=== PATIENT | female | born 1935 | race Caucasian/White ===

== ENCOUNTER 2022-06-03 13:00 | Inpatient (IN) ==
[2022-06-03] MEDS ORDERED: ONDANSETRON INJ 2 MG/ML 2 ML VIAL IV STA (13:07)
[2022-06-03] MEDS ORDERED: fentaNYL citrate 100 MCG/2 ML VIAL IV STA (13:07)
--- NOTE | 2022-06-03 13:12 | Emergency Department Note ---
History of Present Illness General Chief complaint: Hip Pain Stated complaint: FALL, LEG PAIN Time Seen by Provider: 06/03/22 13:02 Source: other (Nurse) Mode of arrival: EMS Limitations: other (Severe dementia) History of Present Illness Provider complaint: Left hip pain Onset (ago): hour(s) Location: hip and left Maximum Pain Intensity: 4 History is very limited as the patient is a resident of the dementia unit at [facility]. I did obtain history from the patient's nurse who spoke to EMS. The patient apparently fell out of bed today prior to arrival and injured her left hip. The fall was unwitnessed but the staff presumed that she fell out of bed. The bed was lowered to the ground. She is confused which is her normal mental status. She does complain of pain to the hip when I palpate it. She otherwise denies any pain anywhere else in her body. She denies headache or neck pain specifically. Home Medications Medication Instructions Recorded Confirmed Type glimepiride 2 mg tablet 4 mg PO DAILY 06/03/22 06/03/22 History linagliptin 5 mg tablet (Tradjenta) 5 mg PO DAILY 06/03/22 06/03/22 History metformin 500 mg tablet 500 mg PO BID 06/03/22 06/03/22 History quetiapine 50 mg tablet 50 mg PO BID 06/03/22 06/03/22 History sertraline 50 mg tablet 50 mg PO DAILY 06/03/22 06/03/22 History Allergies Allergy/AdvReac Type Severity Reaction Status Date / Time atorvastatin Allergy Severe muscle Verified 08/15/15 21:01 weakness Penicillins Allergy Intermediate Hives Verified 08/15/15 20:36 Past Med/Surg History Medical History Dementia Hypertension Social History Feels Safe at Home: Yes Review of Systems See HPI for pertinent positives & negatives. Unobtainable due to cognitive status Physical Exam Vital Signs Vital Signs - 24 hr 06/03/22 13:07 06/03/22 15:40 Temperature 36.7 C Temperature Source Oral Pulse Rate 90 Pulse Rate [Right Radial] 90 Respiratory Rate 18 18 Respiratory Effort / Characteristics Non-Labored Respiratory Depth Normal Blood Pressure 154/75 H Blood Pressure [Left Arm] 131/57 L Blood Pressure Mean 101 Blood Pressure Mean [Left Arm] 81 Blood Pressure Position Sitting Blood Pressure Position [Left Arm] Lying Pulse Oximetry 100 96 Oxygen Delivery Method Room Air Room Air Sepsis Recent Fever Within 48 Hours No Sepsis New/Unexplained Change in Mental Status No Sepsis Action Taken by Nursing No Action Required Constitutional: Vital signs reviewed. Eyes: Pupils are equal round reactive to light. Conjunctiva are noninjected. ENT: The patient will not open her mouth. No midline tenderness to cervical spine. Respiratory: Clear to auscultation bilaterally. Breath sounds are equal bilaterally. Cardiovascular: Regular rate and rhythm. No rubs or gallops. GI: Soft, nondistended and nontender. Bowel sounds are present. Musculoskeletal: Tenderness to the left hip with palpation. No tenderness to the femur, knee, ankle or foot. Normal dorsalis pedis pulse left foot. No tenderness to the right hip. No tenderness to the clavicles, shoulders or upper extremities bilaterally. Right foot in walking boot. Integumentary: No cyanosis. or jaundice. Neurological: The patient is awake and alert. Confused. No focal deficits. Psychiatric: Pleasant. Not agitated. Course Administered Medications Discontinued Medications Fentanyl Citrate (Fentanyl Citrate 100 Mcg/2 Ml Vial) 25 mcg IV NOW STA Stop: 06/03/22 13:08 Last Admin: 06/03/22 13:40 Dose: 25 mcg Documented By: ROSA Ondansetron HCl (Ondansetron Inj 2 Mg/Ml 2 Ml Vial) 4 mg IV NOW STA Stop: 06/03/22 13:08 Last Admin: 06/03/22 13:39 Dose: 4 mg Documented By: ROSA Medical Decision Making Differential Diagnosis Hip fracture, hip dislocation, pelvic fracture, strain, contusion, intracranial hemorrhage, concussion Medical Records Attestation: I reviewed the patient's medical records. I did perform a limited focused review of portions of the patient's old chart on the electronic medical record. The patient has had no recent pertinent visits to this hospital. Home Medications Current Medication List: was personally reviewed by me Laboratory Data Attestation: I reviewed the patient's lab results. Result diagrams: 06/03/22 13:40 06/03/22 13:40 Lab Results 06/03/22 06/03/22 06/03/22 Range/Units 13:40 13:40 13:40 WBC 6.69 (4.8-10.8) K/ul RBC 4.23 (3.93-5.22) M/uL Hgb 12.2 (12.0-16.0) g/dl Hct 36.8 (34.1-44.9) % MCV 87.0 (80.0-100.0) fL MCH 28.8 (25.0-34.0) pg MCHC 33.2 (32.0-36.0) g/dL RDW Std Deviation 41.7 (36.4-46.3) fL RDW Coeff of Manny 13.2 (11.5-14.5) % Plt Count 271 (130-400) K/uL MPV 11.3 (9.4-12.3) fL Immature Gran % (Auto) 0.9 % Neut % (Auto) 67.4 % Lymph % (Auto) 21.2 % [place] % (Auto) 8.1 % Eos % (Auto) 2.1 % Baso % (Auto) 0.3 % Neut # (Auto) 4.51 (1.4-6.5) K/uL Lymph # (Auto) 1.42 (1.2-3.4) K/uL [place] # (Auto) 0.54 (0.24-0.82) K/uL Eos # (Auto) 0.14 (0-0.50) K/uL Baso # (Auto) 0.02 (0-0.2) K/uL Immature Gran # (Auto) 0.06 H (0.00-0.02) K/uL PT 10.9 (9.0-12.0) Seconds INR 1.0 (0.9-1.1) APTT 26.5 (21.0-31.0) Seconds PTT Ratio 1.0 Sodium 138 (136-145) mmol/L Potassium 4.0 (3.5-5.1) mmol/L Chloride 104 (98-107) mmol/L Carbon Dioxide 24 (21-32) mmol/L Anion Gap 10 (3-11) BUN 24 H (6-23) mg/dl Creatinine 1.00 (0.6-1.2) mg/dl Est Cr Clr Drug Dosing Not Reportable Est GFR ( Amer) 59.9 ml/min Est GFR (Non-Af Amer) 51.7 ml/min BUN/Creatinine Ratio 24.0 H (10-20) Glucose 217 H (70-99(Fasting)) mg/dl Calcium 9.1 (8.5-10.1) mg/dl Total Bilirubin 0.5 (0.2-1.0) mg/dl AST 23 (13-39) U/L ALT 18 (7-52) U/L Alkaline Phosphatase 97 (34-104) U/L Total Protein 6.7 (6.0-8.3) gm/dl Albumin 4.0 (3.4-5.0) gm/dl Globulin 2.7 (2.5-4.0) gm/dl Albumin/Globulin Ratio 1.5 (0.9-2) SARS-CoV-2, RNA, NAAT (NEGATIVE) 06/03/22 Range/Units 13:43 WBC (4.8-10.8) K/ul RBC (3.93-5.22) M/uL Hgb (12.0-16.0) g/dl Hct (34.1-44.9) % MCV (80.0-100.0) fL MCH (25.0-34.0) pg MCHC (32.0-36.0) g/dL RDW Std Deviation (36.4-46.3) fL RDW Coeff of Manny (11.5-14.5) % Plt Count (130-400) K/uL MPV (9.4-12.3) fL Immature Gran % (Auto) % Neut % (Auto) % Lymph % (Auto) % [place] % (Auto) % Eos % (Auto) % Baso % (Auto) % Neut # (Auto) (1.4-6.5) K/uL Lymph # (Auto) (1.2-3.4) K/uL [place] # (Auto) (0.24-0.82) K/uL Eos # (Auto) (0-0.50) K/uL Baso # (Auto) (0-0.2) K/uL Immature Gran # (Auto) (0.00-0.02) K/uL PT (9.0-12.0) Seconds INR (0.9-1.1) APTT (21.0-31.0) Seconds PTT Ratio Sodium (136-145) mmol/L Potassium (3.5-5.1) mmol/L Chloride (98-107) mmol/L Carbon Dioxide (21-32) mmol/L Anion Gap (3-11) BUN (6-23) mg/dl Creatinine (0.6-1.2) mg/dl Est Cr Clr Drug Dosing Est GFR ( Amer) ml/min Est GFR (Non-Af Amer) ml/min BUN/Creatinine Ratio (10-20) Glucose (70-99(Fasting)) mg/dl Calcium (8.5-10.1) mg/dl Total Bilirubin (0.2-1.0) mg/dl AST (13-39) U/L ALT (7-52) U/L Alkaline Phosphatase (34-104) U/L Total Protein (6.0-8.3) gm/dl Albumin (3.4-5.0) gm/dl Globulin (2.5-4.0) gm/dl Albumin/Globulin Ratio (0.9-2) SARS-CoV-2, RNA, NAAT NEGATIVE (NEGATIVE) Imaging Data Radiologist's Impression: Cervical Spine CT 06/03/22 13:[address] DOSE: HISTORY: fall eval for fx TECHNIQUE: Multiaxial CT images of the cervical spine were performed and reformatted in the sagittal and coronal plane without the use of contrast. A dose lowering technique was utilized adhering to the principles of ALARA. COMPARISON: None. FINDINGS: No fractures. No subluxation. Prevertebral soft tissues and the C1-C2 interval are intact. No pneumothorax. IMPRESSION: No fractures within the cervical spine. ACT 112: Negative or not required by law. Electronically signed by: Taqueria Hewitt M.D. 06/03/2022 2:[address] 06/03/22 13:[address] DOSE: 1426.88 mGy.cm HISTORY: fall eval fr bleed TECHNIQUE: Multiaxial CT images of the head were performed without the use of intravenous contrast. Automated exposure control was utilized for this study. A dose lowering technique was utilized adhering to the principles of ALARA. Comparison: Brain MRI 08/16/2015. Findings: The paranasal sinuses and mastoid air cells are clear. Partial opacification of the right posterior ethmoid air cells. The remaining paranasal sinuses and mastoid air cells are clear. There is mild motion artifact. Atrophy and microvascular ischemic changes are noted. 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 Ventricular prominence favors central volume loss given the patient's age. Bilateral basal ganglia calcifications are noted. Impression: No acute intracranial abnormality. Atrophy and microvascular ischemic changes. ACT 112: Negative or not required by law. Electronically signed by: Taqueria Hewitt M.D. 06/03/2022 2:15 PM Chest X-Ray 06/03/22 13:08 XR chest 1V portable HISTORY: Hip fracture. Preop. COMPARISON: Chest 08/15/2015. FINDINGS: No pneumothorax. No pleural effusions. There is chronic interstitial thickening, unchanged. No new focal lung consolidations. No evidence for pulmonary edema. The cardiac silhouette is normal in size. There are calcifications within the aortic knob. Prior cholecystectomy. IMPRESSION: Stable chronic interstitial thickening. No acute process within the chest. ACT 112: Negative or not required by law. Electronically signed by: Taqueria Hewitt M.D. 06/03/2022 2:43 PM Hip/Pelvis X-Ray 06/03/22 13:12 XR hip LT 2V w pelvis CLINICAL HISTORY: Fall. Left hip pain. COMPARISON STUDY: None. FINDINGS: There is a comminuted and displaced intertrochanteric fracture of the proximal left femur. No dislocation. The lesser trochanter fragment demonstrates 12 mm of medial displacement. The visualized pelvic bones and right hip are intact. IMPRESSION: Comminuted and displaced intertrochanteric fracture of the proximal left femur. ACT 112: Negative or not required by law. Electronically signed by: Taqueria Hewitt M.D. 06/03/2022 2:42 PM ECG Data Attestation: I personally reviewed and interpreted this ECG as follows: Indication: + other (Fall) Rate (beats per minute): 88 Rhythm: + normal sinus ECG [place]: no Normal ECG ST segments: no ST elevation ECG Findings: + Other (Motion artifact); no PVCs MDM Narrative I did evaluate the patient as noted above. The patient is presenting with left hip pain after a unwitnessed fall. The staff at [facility] states that she fell out of her bed which was low to the ground. She has no complaints at this time but is rather confused due to her dementia. On exam she does have tenderness to the left hip. IV access was established. I did treat the patient with fentanyl and Zofran IV. I did order and personally review the patient's 12-lead EKG as described above. She has no evidence of acute ischemia. I did order and personally reviewed the images of the patient's chest x-ray and pelvis and hip x-rays as described above. She has an intertrochanteric hip fracture. There is no acute process within the chest. I did order and review the patient's blood work as noted in the electronic medical record. CBC is unremarkable without leukocytosis or anemia. Coagulation studies are within normal limits. CMP is unremarkable other than hyperglycemia with a glucose of 217. Screening for COVID-19 is negative. I did order a CT of the head and cervical spine. I did review the images myself as well as the radiology report as described above. There is no evidence of acute process within the brain and no cervical fracture. I did discuss the test results with the patient's daughter who is now in the emergency department. She states that she sees an orthopedic doctor at [facility] for her ankle. She otherwise has no relationship with another orthopedic physician. I did call the on-call orthopedic physician, Dr. Carvalho. I did discuss the case with the hospitalist and case loader operator. Impression & Plan Fx intertrochanteric hip, Fall, Acute hyperglycemia Discharge Plan Visit Data Chief Complaint: Hip Pain Stated Complaint: FALL, LEG PAIN ED Provider: Randy Reed Discharge Problem: Fx intertrochanteric hip, Fall, Acute hyperglycemia Patient Disposition: Being Evaluated by Hospitalist Discharge Instructions Interventions: ED Discharge Assessment Last Done: 06/03/22 16:11 Forms Stand Alone Forms: My [facility] Prescriptions Prescriptions: No Action metformin 500 mg tablet 500 mg PO BID glimepiride 2 mg tablet 4 mg PO DAILY sertraline 50 mg tablet 50 mg PO DAILY quetiapine 50 mg tablet 50 mg PO BID Tradjenta 5 mg tablet 5 mg PO DAILY Referrals Referrals: PCP,NO [Primary Care Provider] - : Fx intertrochanteric hip Qualifiers: Encounter type: initial encounter Fracture type: closed Fracture alignment: displaced Laterality: left Qualified Code(s): S72.142A - Displaced intertrochanteric fracture of left femur, initial encounter for closed fracture Fall Qualifiers: Encounter type: initial encounter Qualified Code(s): W19.XXXA - Unspecified fall, initial encounter
[2022-06-03 13:56] LABS: Basophils # (auto) 0.02 K/uL (0-0.2); Basophils % (auto) 0.3 %; Eosinophils # (auto) 0.14 K/uL (0-0.50); Eosinophils % (auto) 2.1 %; Hematocrit (blood only) 36.8 % (34.1-44.9); Hemoglobin 12.2 g/dl (12.0-16.0); Immature Granulocytes # (auto) 0.06 K/uL (0.00-0.02); Immature Granulocytes % (auto) 0.9 %; Lymphocytes # (auto) 1.42 K/uL (1.2-3.4); Lymphocytes % (auto) 21.2 %; Mean Corpuscular Hemoglobin 28.8 pg (25.0-34.0); Mean Corpuscular Hgb Conc 33.2 g/dL (32.0-36.0); Mean Platelet Volume 11.3 fL (9.4-12.3); Monocytes # (auto) 0.54 K/uL (0.24-0.82); Monocytes % (auto) 8.1 %; Neutrophils # (auto) 4.51 K/uL (1.4-6.5); Neutrophils % (auto) 67.4 %; Platelet Count 271 K/uL (130-400); RDW Coefficient of Variation 13.2 % (11.5-14.5); RDW Standard Deviation 41.7 fL (36.4-46.3); Red Blood Count 4.23 M/uL (3.93-5.22); White Blood Count 6.69 K/ul (4.8-10.8)
--- NOTE | 2022-06-03 14:05 | Electrocardiogram Report ---
Test Reason : Blood Pressure : / mmHG Vent. Rate : 088 BPM Atrial Rate : 088 BPM P-R Int : 130 ms QRS Dur : 074 ms QT Int : 400 ms P-R-T Axes : 041 047 029 degrees QTc Int : 484 ms Poor data quality, interpretation may be adversely affected Sinus rhythm Nonspecific ST and T wave abnormality Abnormal ECG When compared with ECG of 16-AUG-2015 06:53, T wave amplitude has decreased in Anterior leads QT has lengthened Confirmed by Brown Pena ([id number]) on 06/03/2022 2:05:03 PM Referred By: Confirmed By:Brown Pena
[2022-06-03 14:07] LABS: Partial Thromboplastin Time 26.5 Seconds (21.0-31.0); Prothrombin Time 10.9 Seconds (9.0-12.0)
[2022-06-03 14:13] LABS: Alanine Aminotransferase 18 U/L (7-52); Albumin Globulin Ratio 1.5 (0.9-2); Alkaline Phosphatase 97 U/L (34-104); Anion Gap 10 (3-11); Aspartate Aminotransferase 23 U/L (13-39); Bilirubin,Total 0.5 mg/dl (0.2-1.0); Blood Urea Nitrogen 24 mg/dl (6-23); Calcium 9.1 mg/dl (8.5-10.1); Carbon Dioxide 24 mmol/L (21-32); Chloride 104 mmol/L (98-107); Est GFR (African American) 59.9 ml/min; Est GFR (Non-African American) 51.7 ml/min; Globulin 2.7 gm/dl (2.5-4.0); Glucose 217 mg/dl (70-99(Fasting)); Sodium 138 mmol/L (136-145); Total Protein 6.7 gm/dl (6.0-8.3)
--- NOTE | 2022-06-03 14:17 | CT Scan Report ---
HEAD CT NONCONTRAST CT DOSE: 1426.88 mGy.cm HISTORY: fall eval fr bleed TECHNIQUE: Multiaxial CT images of the head were performed without the use of intravenous contrast. A utomated exposure control was utilized for this study. A dose lowering technique was utilized adheri ng to the principles of ALARA. Comparison: Brain MRI 08/16/2015. Findings: The paranasal sinuses and mastoid air cells are clear. Partial opacification of the right p osterior ethmoid air cells. The remaining paranasal sinuses and mastoid air cells are clear. There is mild motion artifact. Atrophy and microvascular ischemic changes are noted. There is an old right pa rietal infarct. Ventricular prominence favors central volume loss given the patient's age. Bilateral basal ganglia calcifications are noted. Impression: No acute intracranial abnormality. Atrophy and microvascular ischemic changes. ACT 112: Negative or not required by law. Electronically signed by: Taqueria Hewitt M.D. 06/03/2022 2:15 PM
--- NOTE | 2022-06-03 14:29 | CT Scan Report ---
CERVICAL SPINE CT CT DOSE: HISTORY: fall eval for fx TECHNIQUE: Multiaxial CT images of the cervical spine were performed and reformatted in the sagittal and coronal plane without the use of contrast. A dose lowering technique was utilized adhering to th e principles of ALARA. COMPARISON: None. FINDINGS: No fractures. No subluxation. Prevertebral soft tissues and the C1-C2 interval are intact. No pneumothorax. IMPRESSION: No fractures within the cervical spine. ACT 112: Negative or not required by law. Electronically signed by: Taqueria Hewitt M.D. 06/03/2022 2:26 PM
--- NOTE | 2022-06-03 14:43 | XRay Report ---
XR hip LT 2V w pelvis CLINICAL HISTORY: Fall. Left hip pain. COMPARISON STUDY: None. FINDINGS: There is a comminuted and displaced intertrochanteric fracture of the proximal left femur. No dislocation. The lesser trochanter fragment demonstrates 12 mm of medial displacement. The visuali zed pelvic bones and right hip are intact. IMPRESSION: Comminuted and displaced intertrochanteric fracture of the proximal left femur. ACT 112: Negative or not required by law. Electronically signed by: Taqueria Hewitt M.D. 06/03/2022 2:42 PM
--- NOTE | 2022-06-03 14:44 | XRay Report ---
XR chest 1V portable HISTORY: Hip fracture. Preop. COMPARISON: Chest 08/15/2015. FINDINGS: No pneumothorax. No pleural effusions. There is chronic interstitial thickening, unchanged. No new focal lung consolidations. No evidence for pulmonary edema. The cardiac silhouette is normal in size. There are calcifications within the aortic knob. Prior cholecystectomy. IMPRESSION: Stable chronic interstitial thickening. No acute process within the chest. ACT 112: Negative or not required by law. Electronically signed by: Taqueria Hewitt M.D. 06/03/2022 2:43 PM
[2022-06-03] MEDS ORDERED: GLUCOSE 10 TAB/TUBE PO PRN (16:38)
[2022-06-03] MEDS ORDERED: GLUCAGON FOR INJ 1 MG VIAL SQ PRN (16:38)
[2022-06-03] MEDS ORDERED: GLUCOSE 40% GEL 15 GM TUBE PO PRN (16:38)
[2022-06-03] MEDS ORDERED: bisacodyL 10 MG SUPP PR PRN (16:38)
[2022-06-03] MEDS ORDERED: CARBOHYDRATES FOR HYPOGLYCEMIA PO PRN (16:38)
[2022-06-03] MEDS ORDERED: MAGNESIUM HYDROXIDE SUSP 30 ML UDC PO PRN (16:38)
[2022-06-03] MEDS ORDERED: DEXTROSE 50% 50 ML SYRINGE IV PRN (16:38)
[2022-06-03] MEDS ORDERED: NALOXONE HCL 0.4 MG/1 ML VIAL/CARP IV PRN (16:38)
--- NOTE | 2022-06-03 16:42 | History & Physical Report ---
Date of Service June 03, 2022 Assessment & Plan (1) Fracture, proximal femur: (2) Fall: (3) Right foot injury: (4) Severe dementia: (5) DMII (diabetes mellitus, type 2): (6) HLD (hyperlipidemia): (7) CKD (chronic kidney disease), stage III: (8) GERD (gastroesophageal reflux disease): (9) HTN (hypertension): Plan L proximal femur fracture after a fall: -Hip xray: Comminuted and displaced intertrochanteric fracture of the proximal left femur -Pt was in a lot of pain with movement --- thus will do morphine 1mg IV q6hr prn for pain management -NPO --- pt appeared a little dry: will do D5 NS 50 cc/hr -Ortho consulted -SAVANNAH stocking -fall precautions -Family is okay with surgery - No hx of VT or CVA and tolerated general anesthesia in the past per family -pt is acceptable risk for surgery DMII: -hold oral meds -ISS Severe dementia: -per family pt is AAOx0 at baseline -due to recent R foot injury pt is not ambulating well otherwise ambulates w/o any assistance - on Seroquel BID and Zoloft daily HTN/HLD/GERD: -not taking any meds at this time Diet: NPO DVT PPx: SAVANNAH stocking Code Status: DNR/DNI Emergency Contact: Daughter (Tatiana) [phone] Admission and Anticipated Discharge Date Admission Date: June 03, 2022 History of Present Illness Chief Complaint: L hip pain after a fall Primary Care Provider: NO PCP Pt is a 86 y/o F with hx of Severe Dementia (AAOxO at baseline), DMII, HTN (not on meds), CKD III, HLD, GERD, Recent hx of R calcaneal fracture on boot brought in from [facility] after she was found on the floor next to her bed. Information was obtained from pts and daughter. Per them pt was sent to [facility] as a restpite care after her R foot injury. Pt was awake when she was found and no sign of any urinary incontinence or foaming in her mouth. At baseline: pt is AAOx0, she walks w/o any assistance and lives with her . Daughter (Tatiana) is the POA and verified that pt is DNR/DNI. Pt is verbal but does not answer appropriately Allergies Allergy/AdvReac Type Severity Reaction Status Date / Time atorvastatin Allergy Severe muscle Verified 08/15/15 21:01 weakness Penicillins Allergy Intermediate Hives Verified 08/15/15 20:36 Home Medications Medication Instructions Recorded Confirmed Type glimepiride 2 mg tablet 4 mg PO DAILY 06/03/22 06/03/22 History linagliptin 5 mg tablet (Tradjenta) 5 mg PO DAILY 06/03/22 06/03/22 History metformin 500 mg tablet 500 mg PO BID 06/03/22 06/03/22 History quetiapine 50 mg tablet 50 mg PO BID 06/03/22 06/03/22 History sertraline 50 mg tablet 50 mg PO DAILY 06/03/22 06/03/22 History Past Med/Surg History Medical History (Updated 06/03/22 @ 16:39 by Deborah Moreland MD) CKD (chronic kidney disease), stage III Dementia DMII (diabetes mellitus, type 2) GERD (gastroesophageal reflux disease) HLD (hyperlipidemia) HTN (hypertension) Hypertension Right foot injury Severe dementia Surgical History (Updated 06/03/22 @ 16:35 by Deborah Moreland MD) History of cataract surgery History of cholecystectomy Family History (Updated 06/03/22 @ 16:36 by Deborah Moreland MD) Other Coronary heart disease Dementia Diabetes Hypertension Social History (Updated 06/03/22 @ 16:36 by Deborah Moreland MD) Smoking Status: Never smoker Hx Alcohol Use: No Hx Substance Use: No Feels Safe at Home: Yes Review of Systems Review of Systems: At least 10 Review of systems were reviewed and all negative except as indicated in HPI Physical Exam Physical Exam: General:.in mild distress, well developed, well nourished, average body habitus HEENT:.dry oral mucosa, Normocephalic and atraumatic, Normal Conjunctiva, Sclera is non-icteric Lungs:. No signs of respiratory distress, CTA, no wheezing or crackles Heart:.systolic murmur, Normal S1, S2 Abdominal:. ND, Soft, NT MSK:.Swelling near the L groin and lateral hip area, TTP of that area, R leg boot in place, no LE edema Psych:at baseline AAOx 0, does not answer questions appropriately Results & Data Results & Data ([facility]) Vital Signs (Past 12 Hours) Vital Signs Temp Pulse Pulse Resp BP BP Pulse Ox 06/03/22 15:40 90 18 131/57 L 96 06/03/22 13:07 36.7 C 90 18 154/75 H 100 O2 Del Method 06/03/22 15:40 Room Air 06/03/22 13:07 Room Air Laboratory Results Short CBC 06/03/22 Range/Units 13:40 WBC 6.69 (4.8-10.8) K/ul Hgb 12.2 (12.0-16.0) g/dl Hct 36.8 (34.1-44.9) % Plt Count 271 (130-400) K/uL BMP 06/03/22 13:40 Sodium 138 Potassium 4.0 Chloride 104 Carbon Dioxide 24 BUN 24 H Creatinine 1.00 Glucose 217 H Calcium 9.1 Liver Function 06/03/22 Range/Units 13:40 Total Bilirubin 0.5 (0.2-1.0) mg/dl AST 23 (13-39) U/L ALT 18 (7-52) U/L Alkaline Phosphatase 97 (34-104) U/L Albumin 4.0 (3.4-5.0) gm/dl Diagnostic Findings Cervical Spine CT 06/03/22 13:[address] DOSE: HISTORY: fall eval for fx TECHNIQUE: Multiaxial CT images of the cervical spine were performed and reformatted in the sagittal and coronal plane without the use of contrast. A dose lowering technique was utilized adhering to the principles of ALARA. COMPARISON: None. FINDINGS: No fractures. No subluxation. Prevertebral soft tissues and the C1-C2 interval are intact. No pneumothorax. IMPRESSION: No fractures within the cervical spine. ACT 112: Negative or not required by law. Electronically signed by: Taqueria Hewitt M.D. 06/03/2022 2:[address] 06/03/22 13:[address] DOSE: 1426.88 mGy.cm HISTORY: fall eval fr bleed TECHNIQUE: Multiaxial CT images of the head were performed without the use of intravenous contrast. Automated exposure control was utilized for this study. A dose lowering technique was utilized adhering to the principles of ALARA. Comparison: Brain MRI 08/16/2015. Findings: The paranasal sinuses and mastoid air cells are clear. Partial opacification of the right posterior ethmoid air cells. The remaining paranasal sinuses and mastoid air cells are clear. There is mild motion artifact. Atrophy and microvascular ischemic changes are noted. 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 Ventricular prominence favors central volume loss given the patient's age. Bilateral basal ganglia calcifications are noted. Impression: No acute intracranial abnormality. Atrophy and microvascular ischemic changes. ACT 112: Negative or not required by law. Electronically signed by: Taqueria Heiwtt M.D. 06/03/2022 2:15 PM Chest X-Ray 06/03/22 13:08 XR chest 1V portable HISTORY: Hip fracture. Preop. COMPARISON: Chest 08/15/2015. FINDINGS: No pneumothorax. No pleural effusions. There is chronic interstitial thickening, unchanged. No new focal lung consolidations. No evidence for pulmonary edema. The cardiac silhouette is normal in size. There are calcifications within the aortic knob. Prior cholecystectomy. IMPRESSION: Stable chronic interstitial thickening. No acute process within the chest. ACT 112: Negative or not required by law. Electronically signed by: Taqueria Hewitt M.D. 06/03/2022 2:43 PM Hip/Pelvis X-Ray 06/03/22 13:12 XR hip LT 2V w pelvis CLINICAL HISTORY: Fall. Left hip pain. COMPARISON STUDY: None. FINDINGS: There is a comminuted and displaced intertrochanteric fracture of the proximal left femur. No dislocation. The lesser trochanter fragment demonstrates 12 mm of medial displacement. The visualized pelvic bones and right hip are intact. IMPRESSION: Comminuted and displaced intertrochanteric fracture of the proximal left femur. ACT 112: Negative or not required by law. Electronically signed by: Taqueria Hewitt M.D. 06/03/2022 2:42 PM Code Status & VTE Plan VTE Prophylaxis Plan VTE Prophylaxis will be ordered: Yes
[2022-06-03] MEDS: D5W AND NSS 1,000 ML IV SCH (17:21)
[2022-06-03] MEDS: MoRPHine SULFATE 2 MG/ML CARP IV PRN (17:21)
[2022-06-03] MEDS: INSULIN ASPART PER UNIT SC SCH ×2 (17:40→20:56)
[2022-06-03] MEDS: QUEtiapine FUMARATE 25 MG TABLET PO SCH (20:35)
[2022-06-03] MEDS: DOCUSATE SODIUM/SENNA 50/8.6MG TAB PO SCH (20:35)
[2022-06-03] MEDS: ACETAMINOPHEN 325 MG TAB PO PRN (20:35)
[2022-06-04] MEDS ORDERED: Nursing to Pharmacy Communication SCH ×2 (02:45→13:30)
[2022-06-04] MEDS: INSULIN ASPART PER UNIT SC SCH ×4 (05:34→21:09)
[2022-06-04 05:43] LABS: Basophils # (auto) 0.03 K/uL (0-0.2); Basophils % (auto) 0.4 %; Eosinophils % (auto) 1.4 %; Hematocrit (blood only) 31.5 % (34.1-44.9); Hemoglobin 10.5 g/dl (12.0-16.0); Immature Granulocytes # (auto) 0.06 K/uL (0.00-0.02); Immature Granulocytes % (auto) 0.8 %; Lymphocytes # (auto) 1.41 K/uL (1.2-3.4); Lymphocytes % (auto) 19.2 %; Mean Corpuscular Hemoglobin 29.2 pg (25.0-34.0); Mean Corpuscular Hgb Conc 33.3 g/dL (32.0-36.0); Mean Corpuscular Volume 87.5 fL (80.0-100.0); Mean Platelet Volume 11.5 fL (9.4-12.3); Monocytes # (auto) 0.79 K/uL (0.24-0.82); Monocytes % (auto) 10.8 %; Neutrophils # (auto) 4.94 K/uL (1.4-6.5); Neutrophils % (auto) 67.4 %; Platelet Count 239 K/uL (130-400); RDW Coefficient of Variation 13.2 % (11.5-14.5); RDW Standard Deviation 42.5 fL (36.4-46.3); White Blood Count 7.33 K/ul (4.8-10.8)
[2022-06-04 06:18] LABS: BUN Creatinine Ratio 23.9 (10-20); Calcium 8.5 mg/dl (8.5-10.1); Creatinine Clr Calc Pharmacy 36.5 ml/min; Est GFR (African American) 66.3 ml/min; Est GFR (Non-African American) 57.2 ml/min; Potassium 3.8 mmol/L (3.5-5.1)
--- NOTE | 2022-06-04 07:53 | Anesthesiology Consultation ---
Date of Service June 04, 2022 Assessment & Plan (1) Encounter for pre-operative examination: Chart Review Chart Review: data entry manager initiated History Surgery Operation Date: 06/04/22 10:00 Proposed Procedures p Intramedullary Leo Femur - Macario Bueno MD Height/Weight Height: 5 ft Weight: 58.6 kg Allergies Allergy/AdvReac Type Severity Reaction Status Date / Time atorvastatin Allergy Severe muscle Verified 08/15/15 21:01 weakness Penicillins Allergy Intermediate Hives Verified 08/15/15 20:36 Medications Home Medications Medication Instructions Recorded Confirmed Last Taken glimepiride 2 mg tablet 4 mg PO DAILY 06/03/22 06/03/22 Unknown linagliptin 5 mg tablet (Tradjenta) 5 mg PO DAILY 06/03/22 06/03/22 Unknown metformin 500 mg tablet 500 mg PO BID 06/03/22 06/03/22 Unknown quetiapine 50 mg tablet 50 mg PO BID 06/03/22 06/03/22 Unknown sertraline 50 mg tablet 50 mg PO DAILY 06/03/22 06/03/22 Unknown Active Medications Generic Name Dose Route Start Last Admin Trade Name Freq PRN Reason Stop Dose Admin Acetaminophen 650 mg 06/03/22 16:38 06/03/22 20:35 Acetaminophen 325 Mg Tab PO 07/03/22 16:37 650 mg Q6H PRN Administration pain/fever Dextrose/Sodium Chloride 1,000 mls @ 50 mls/hr 06/03/22 16:38 06/03/22 17:21 D5w And Nss IV 07/03/22 16:37 50 mls/hr .Q20H GABRIEL Administration Insulin Aspart 0 units 06/04/22 06:00 06/04/22 05:34 Insulin Aspart Per Unit SC 07/04/22 05:59 3 units Q6 GABRIEL Administration Morphine Sulfate 1 mg 06/03/22 16:38 06/03/22 17:21 Morphine Sulfate 2 Mg/Ml Carp IV 06/17/22 16:37 1 mg Q6H PRN Administration Pain (1,2,3,4,5) & Pre PT Quetiapine Fumarate 50 mg 06/03/22 21:00 06/03/22 20:35 Quetiapine Fumarate 25 Mg Tablet PO 07/03/22 20:59 50 mg BID GABRIEL Administration Senna/Docusate Sodium 2 tab 06/03/22 21:00 06/03/22 20:35 Docusate Sodium/Senna 50/8.6mg Tab PO 07/03/22 20:59 Not Given HS GABRIEL Past Medical History Medical History CKD (chronic kidney disease), stage III Dementia DMII (diabetes mellitus, type 2) GERD (gastroesophageal reflux disease) HLD (hyperlipidemia) HTN (hypertension) Hypertension Right foot injury Severe dementia Past Family History Family History Other Coronary heart disease Dementia Diabetes Hypertension Past Surgical History Surgical History History of cataract surgery History of cholecystectomy Social History Smoking Status: Never smoker Hx Alcohol Use: No Hx Substance Use: No Physical Exam Vital Signs Last Vital Signs Temp 98.8 F 06/03/22 22:25 Pulse 100 H 06/03/22 22:25 Resp 14 06/03/22 22:25 BP 116/66 06/03/22 22:25 Pulse Ox 95 06/03/22 22:25 O2 Del Method 06/03/22 22:25 Testing Laboratory Results 06/04/22 05:21 06/04/22 05:21 PT 10.9 Seconds (9.0-12.0) 06/03/22 13:40 INR 1.0 (0.9-1.1) 06/03/22 13:40 APTT 26.5 Seconds (21.0-31.0) 06/03/22 13:40 Blood Type O Positive 06/03/22 18:34 Antibody Screen NEGATIVE 06/03/22 18:34 06/04/22 06/03/22 06/03/22 05:28 20:53 20:51 POC Glucose 266 H 285 H 293 H Electrocardiogram Date: 06/03/22 Poor data quality, interpretation may be adversely affected Sinus rhythm Nonspecific ST and T wave abnormality Abnormal ECG When compared with ECG of 16-AUG-2015 06:53, T wave amplitude has decreased in Anterior leads QT has lengthened Confirmed by Brown Pena ([id number]) on 06/03/2022 2:05:03 PM Chest X-Ray Date: 06/03/22 FINDINGS: No pneumothorax. No pleural effusions. There is chronic interstitial thickening, unchanged. No new focal lung consolidations. No evidence for pulmonary edema. The cardiac silhouette is normal in size. There are calcifications within the aortic knob. Prior cholecystectomy. IMPRESSION: Stable chronic interstitial thickening. No acute process within the chest.
[2022-06-04] MEDS ORDERED: ceFAZolin 1000MG 1,000 MG/7.5 ML SYR IV SCH (08:45)
--- NOTE | 2022-06-04 09:02 | History & Physical Bridge Note ---
Date of Service June 04, 2022 History & Physical Bridge Note I have examined the patient, reviewed the History & Physical and in the interval since the performance of the History & Physical I have noted the following changes of clinical significance: no changes noted
--- NOTE | 2022-06-04 09:10 | Hospitalist Progress Note ---
Date of Service June 04, 2022 Assessment & Plan (1) Fracture, proximal femur: (2) Fall: (3) Right foot injury: (4) Severe dementia: (5) DMII (diabetes mellitus, type 2): (6) HLD (hyperlipidemia): (7) CKD (chronic kidney disease), stage III: (8) GERD (gastroesophageal reflux disease): (9) HTN (hypertension): Plan L proximal femur fracture after a fall: -Hip xray: Comminuted and displaced intertrochanteric fracture of the proximal left femur -Pt was in a lot of pain with movement on admission --- morphine 1mg IV q6hr prn for pain management - Orthopedics consulted --periop Abx - cefazolin -- pt s/p Left Hip Long Trochanteric Nailing(Left) - Macario Bueno MD, today 06/04 - tolerated procedure well - She can weight-bear as tolerated. She will need an extended care facility. Lovenox for DVT prophylaxis. PT and OT per protocol. - dvt ppx - per orthopedics DMII: -hold oral meds -ISS Severe dementia: -per family pt is AAOx0 at baseline -due to recent R foot injury pt is not ambulating well otherwise ambulates w/o any assistance - on Seroquel BID and Zoloft daily HTN/HLD/GERD: -not taking any meds at this time Diet: carb consistent DVT PPx: lovenox Code Status: DNR/DNI Emergency Contact: Daughter (Tatiana) [phone] Admission and Anticipated Discharge Date Admission Date: June 03, 2022 Subjective Pt seen in follow up of hip fracture s/p Left Hip Long Trochanteric Nailing(Left) - Macario Bueno MD, today 06/04 Currently laying in bed, in no acute distress, pleasantly confused Denies any fevers, chills, chest pain, shortness of breath, abdominal pain, nausea vomiting Review of Systems Review of Systems: All systems reviewed & are unremarkable except as noted in Subjective Physical Exam Physical Exam: General: WD/WN, el beto F laying in bed, in NAD HEENT: NC/AT, Normal Con junctiva, Sclera i s non-icteric Lung s:.No signs of re spiratory distress , CTA, no wheezing or crackles Heart :+systolic murmur, Normal S1, S2 Abd ominal:.ND, Soft, NT : Landeros cath eter placed, drain ing yellow urine M SK: L lateral hip/ thigh - surgical d ressings applied, no significant LE edema noted Psych: Awake pleasant, h owever does not an swer all questions appropriately -se ems at baseline du e to dementia Results & Data Results & Data ([facility]) Vital Signs (Past 12 Hours) Vital Signs Temp Pulse Pulse Resp BP Pulse Ox Pulse Ox 06/04/22 08:00 06/04/22 08:05 97 06/04/22 08:03 37.3 C 84 18 128/70 97 06/03/22 22:25 37.1 C 100 H 14 116/66 95 O2 Del Method 06/04/22 08:00 Room Air 06/04/22 08:05 06/04/22 08:03 Room Air 06/03/22 22:25 Room Air Laboratory Results 06/04/22 06/04/22 06/04/22 Range/Units 05:28 05:21 05:21 WBC 7.33 (4.8-10.8) K/ul RBC 3.60 L (3.93-5.22) M/uL Hgb 10.5 L (12.0-16.0) g/dl Hct 31.5 L (34.1-44.9) % MCV 87.5 (80.0-100.0) fL MCH 29.2 (25.0-34.0) pg MCHC 33.3 (32.0-36.0) g/dL RDW Std Deviation 42.5 (36.4-46.3) fL RDW Coeff of Manny 13.2 (11.5-14.5) % Plt Count 239 (130-400) K/uL MPV 11.5 (9.4-12.3) fL Immature Gran % (Auto) 0.8 % Neut % (Auto) 67.4 % Lymph % (Auto) 19.2 % [place] % (Auto) 10.8 % Eos % (Auto) 1.4 % Baso % (Auto) 0.4 % Neut # (Auto) 4.94 (1.4-6.5) K/uL Lymph # (Auto) 1.41 (1.2-3.4) K/uL [place] # (Auto) 0.79 (0.24-0.82) K/uL Eos # (Auto) 0.10 (0-0.50) K/uL Baso # (Auto) 0.03 (0-0.2) K/uL Immature Gran # (Auto) 0.06 H (0.00-0.02) K/uL PT (9.0-12.0) Seconds INR (0.9-1.1) APTT (21.0-31.0) Seconds PTT Ratio Sodium 140 (136-145) mmol/L Potassium 3.8 (3.5-5.1) mmol/L Chloride 108 H (98-107) mmol/L Carbon Dioxide 26 (21-32) mmol/L Anion Gap 6 (3-11) BUN 22 (6-23) mg/dl Creatinine 0.92 (0.6-1.2) mg/dl Est Cr Clr Drug Dosing 36.5 Est GFR ( Amer) 66.3 ml/min Est GFR (Non-Af Amer) 57.2 ml/min BUN/Creatinine Ratio 23.9 H (10-20) Glucose 234 H (70-99(Fasting)) mg/dl POC Glucose 266 H (70-99) mg/dl Calcium 8.5 (8.5-10.1) mg/dl Total Bilirubin (0.2-1.0) mg/dl AST (13-39) U/L ALT (7-52) U/L Alkaline Phosphatase (34-104) U/L Total Protein (6.0-8.3) gm/dl Albumin (3.4-5.0) gm/dl Globulin (2.5-4.0) gm/dl Albumin/Globulin Ratio (0.9-2) Nasal Screen MRSA (PCR) (Negative) SARS-CoV-2, RNA, NAAT (NEGATIVE) Blood Type Antibody Screen 06/03/22 06/03/22 06/03/22 Range/Units 20:53 20:51 18:34 WBC (4.8-10.8) K/ul RBC (3.93-5.22) M/uL Hgb (12.0-16.0) g/dl Hct (34.1-44.9) % MCV (80.0-100.0) fL MCH (25.0-34.0) pg MCHC (32.0-36.0) g/dL RDW Std Deviation (36.4-46.3) fL RDW Coeff of Manny (11.5-14.5) % Plt Count (130-400) K/uL MPV (9.4-12.3) fL Immature Gran % (Auto) % Neut % (Auto) % Lymph % (Auto) % [place] % (Auto) % Eos % (Auto) % Baso % (Auto) % Neut # (Auto) (1.4-6.5) K/uL Lymph # (Auto) (1.2-3.4) K/uL [place] # (Auto) (0.24-0.82) K/uL Eos # (Auto) (0-0.50) K/uL Baso # (Auto) (0-0.2) K/uL Immature Gran # (Auto) (0.00-0.02) K/uL PT (9.0-12.0) Seconds INR (0.9-1.1) APTT (21.0-31.0) Seconds PTT Ratio Sodium (136-145) mmol/L Potassium (3.5-5.1) mmol/L Chloride (98-107) mmol/L Carbon Dioxide (21-32) mmol/L Anion Gap (3-11) BUN (6-23) mg/dl Creatinine (0.6-1.2) mg/dl Est Cr Clr Drug Dosing Est GFR ( Amer) ml/min Est GFR (Non-Af Amer) ml/min BUN/Creatinine Ratio (10-20) Glucose (70-99(Fasting)) mg/dl POC Glucose 285 H 293 H (70-99) mg/dl Calcium (8.5-10.1) mg/dl Total Bilirubin (0.2-1.0) mg/dl AST (13-39) U/L ALT (7-52) U/L Alkaline Phosphatase (34-104) U/L Total Protein (6.0-8.3) gm/dl Albumin (3.4-5.0) gm/dl Globulin (2.5-4.0) gm/dl Albumin/Globulin Ratio (0.9-2) Nasal Screen MRSA (PCR) (Negative) SARS-CoV-2, RNA, NAAT (NEGATIVE) Blood Type O Positive Antibody Screen NEGATIVE 06/03/22 06/03/22 06/03/22 Range/Units 17:30 17:16 13:43 WBC (4.8-10.8) K/ul RBC (3.93-5.22) M/uL Hgb (12.0-16.0) g/dl Hct (34.1-44.9) % MCV (80.0-100.0) fL MCH (25.0-34.0) pg MCHC (32.0-36.0) g/dL RDW Std Deviation (36.4-46.3) fL RDW Coeff of Manny (11.5-14.5) % Plt Count (130-400) K/uL MPV (9.4-12.3) fL Immature Gran % (Auto) % Neut % (Auto) % Lymph % (Auto) % [place] % (Auto) % Eos % (Auto) % Baso % (Auto) % Neut # (Auto) (1.4-6.5) K/uL Lymph # (Auto) (1.2-3.4) K/uL [place] # (Auto) (0.24-0.82) K/uL Eos # (Auto) (0-0.50) K/uL Baso # (Auto) (0-0.2) K/uL Immature Gran # (Auto) (0.00-0.02) K/uL PT (9.0-12.0) Seconds INR (0.9-1.1) APTT (21.0-31.0) Seconds PTT Ratio Sodium (136-145) mmol/L Potassium (3.5-5.1) mmol/L Chloride (98-107) mmol/L Carbon Dioxide (21-32) mmol/L Anion Gap (3-11) BUN (6-23) mg/dl Creatinine (0.6-1.2) mg/dl Est Cr Clr Drug Dosing Est GFR ( Amer) ml/min Est GFR (Non-Af Amer) ml/min BUN/Creatinine Ratio (10-20) Glucose (70-99(Fasting)) mg/dl POC Glucose 168 H (70-99) mg/dl Calcium (8.5-10.1) mg/dl Total Bilirubin (0.2-1.0) mg/dl AST (13-39) U/L ALT (7-52) U/L Alkaline Phosphatase (34-104) U/L Total Protein (6.0-8.3) gm/dl Albumin (3.4-5.0) gm/dl Globulin (2.5-4.0) gm/dl Albumin/Globulin Ratio (0.9-2) Nasal Screen MRSA (PCR) Negative (Negative) SARS-CoV-2, RNA, NAAT NEGATIVE (NEGATIVE) Blood Type Antibody Screen 06/03/22 06/03/22 06/03/22 Range/Units 13:40 13:40 13:40 WBC 6.69 (4.8-10.8) K/ul RBC 4.23 (3.93-5.22) M/uL Hgb 12.2 (12.0-16.0) g/dl Hct 36.8 (34.1-44.9) % MCV 87.0 (80.0-100.0) fL MCH 28.8 (25.0-34.0) pg MCHC 33.2 (32.0-36.0) g/dL RDW Std Deviation 41.7 (36.4-46.3) fL RDW Coeff of Manny 13.2 (11.5-14.5) % Plt Count 271 (130-400) K/uL MPV 11.3 (9.4-12.3) fL Immature Gran % (Auto) 0.9 % Neut % (Auto) 67.4 % Lymph % (Auto) 21.2 % [place] % (Auto) 8.1 % Eos % (Auto) 2.1 % Baso % (Auto) 0.3 % Neut # (Auto) 4.51 (1.4-6.5) K/uL Lymph # (Auto) 1.42 (1.2-3.4) K/uL [place] # (Auto) 0.54 (0.24-0.82) K/uL Eos # (Auto) 0.14 (0-0.50) K/uL Baso # (Auto) 0.02 (0-0.2) K/uL Immature Gran # (Auto) 0.06 H (0.00-0.02) K/uL PT 10.9 (9.0-12.0) Seconds INR 1.0 (0.9-1.1) APTT 26.5 (21.0-31.0) Seconds PTT Ratio 1.0 Sodium 138 (136-145) mmol/L Potassium 4.0 (3.5-5.1) mmol/L Chloride 104 (98-107) mmol/L Carbon Dioxide 24 (21-32) mmol/L Anion Gap 10 (3-11) BUN 24 H (6-23) mg/dl Creatinine 1.00 (0.6-1.2) mg/dl Est Cr Clr Drug Dosing Not Reportable Est GFR ( Amer) 59.9 ml/min Est GFR (Non-Af Amer) 51.7 ml/min BUN/Creatinine Ratio 24.0 H (10-20) Glucose 217 H (70-99(Fasting)) mg/dl POC Glucose (70-99) mg/dl Calcium 9.1 (8.5-10.1) mg/dl Total Bilirubin 0.5 (0.2-1.0) mg/dl AST 23 (13-39) U/L ALT 18 (7-52) U/L Alkaline Phosphatase 97 (34-104) U/L Total Protein 6.7 (6.0-8.3) gm/dl Albumin 4.0 (3.4-5.0) gm/dl Globulin 2.7 (2.5-4.0) gm/dl Albumin/Globulin Ratio 1.5 (0.9-2) Nasal Screen MRSA (PCR) (Negative) SARS-CoV-2, RNA, NAAT (NEGATIVE) Blood Type Antibody Screen Medications Administered Current Inpatient Medications Acetaminophen (Acetaminophen 325 Mg Tab) 650 mg PO Q6H PRN PRN Reason: pain/fever Stop: 07/03/22 16:37 Last Admin: 06/03/22 20:35 Dose: 650 mg Bisacodyl (Bisacodyl 10 Mg Supp) 10 mg MT DAILY PRN PRN Reason: Constipation Stop: 07/03/22 16:37 Dextrose (Dextrose 50% 50 Ml Syringe) 25 - 50 ml IV UD PRN; Protocol PRN Reason: Hypoglycemia Protocol Stop: 07/03/22 16:37 Glucagon (Glucagon For Inj 1 Mg Vial) 1 mg SQ UD PRN; Protocol PRN Reason: Hypoglycemia Protocol Stop: 07/03/22 16:37 Glucose (Glucose 40% Gel 15 Gm Tube) 15 - 30 gm PO UD PRN; Protocol PRN Reason: Hypoglycemia Protocol Stop: 07/03/22 16:37 Glucose (Glucose 10 Tab/Tube) 4 - 8 tab PO UD PRN; Protocol PRN Reason: Hypoglycemia Treatment Stop: 07/03/22 16:37 Dextrose/Sodium Chloride (D5w And Nss) 1,000 mls @ 50 mls/hr IV .Q20H GABRIEL Stop: 07/03/22 16:37 Last Admin: 06/03/22 17:21 Dose: 50 mls/hr Cefazolin Sodium (Ancef 1000mg) 1,000 mg in 7.5 mls @ 2.5 mls/min IV PREOP GABRIEL Stop: 06/04/22 14:00 Insulin Aspart (Insulin Aspart Per Unit) 0 units SC Q6 GABRIEL Stop: 07/04/22 05:59 Last Admin: 06/04/22 05:34 Dose: 3 units Magnesium Hydroxide (Magnesium Hydroxide Susp 30 Ml Udc) 30 ml PO DAILY PRN PRN Reason: Constipation Stop: 07/03/22 16:37 Miscellaneous (Carbohydrates For Hypoglycemia ) 15 - 30 gm PO UD PRN PRN Reason: Hypoglycemia Protocol Stop: 07/03/22 16:37 Morphine Sulfate (Morphine Sulfate 2 Mg/Ml Carp) 1 mg IV Q6H PRN PRN Reason: Pain (1,2,3,4,5) & Pre PT Stop: 06/17/22 16:37 Last Admin: 06/03/22 17:21 Dose: 1 mg Naloxone HCl (Naloxone Hcl 0.4 Mg/1 Ml Vial/Carp) 0.1 mg IV UD PRN PRN Reason: Opiate Overdose Stop: 07/03/22 16:37 Quetiapine Fumarate (Quetiapine Fumarate 25 Mg Tablet) 50 mg PO BID GABRIEL Stop: 07/03/22 20:59 Last Admin: 06/03/22 20:35 Dose: 50 mg Senna/Docusate Sodium (Docusate Sodium/Senna 50/8.6mg Tab) 2 tab PO HS GABRIEL Stop: 07/03/22 20:59 Last Admin: 06/03/22 20:35 Dose: Not Given Sertraline HCl (Sertraline Hcl 50 Mg Tablet) 50 mg PO DAILY GABRIEL Stop: 07/04/22 08:59
[2022-06-04] MEDS ORDERED: ATROPINE SULFATE 0.1 MG/ML 10ML SYR IV PRN (09:47)
[2022-06-04] MEDS ORDERED: fentaNYL citrate 100 MCG/2 ML VIAL IV PRN (09:47)
[2022-06-04] MEDS ORDERED: ePHEDrine sulfate 50 MG/ML AMP IV PRN (09:47)
[2022-06-04] MEDS ORDERED: ONDANSETRON INJ 2 MG/ML 2 ML VIAL IV PRN (09:47)
[2022-06-04] MEDS ORDERED: fentaNYL citrate 100 MCG/2 ML VIAL ONE (09:58)
--- NOTE | 2022-06-04 10:06 | Progress Notes ---
DATE OF SERVICE: 06/04/2022 I was consulted to see the patient because of a left hip injury. She fell out of bed and sustained a left hip fracture. She suffers from dementia. She also has diabetes and high blood pressure. I sp balbina to her daughter on the phone. She also has chronic kidney disease. There is no history of bleed ing, blood clots, metal allergies or MRSA. She has a unknown allergy to PENICILLIN. She did have a gallbladder removed, tubal ligation and wrist surgery. Currently being treated for a right foot ankl e injury. Her exam demonstrates palpable pulses, which are not palpable. The left leg is shortened and externa lly rotated. There is pain with palpation and movement of the left hip. The left lower extremity is otherwise nontender. She has a boot on the right leg. She can bend her right knee and move both of her upper extremities. She is awake and alert, but she is not oriented to person, place or time. S he can wiggle her toes and flex and extend her ankle, but does not comply with a detailed distal neur ovascular exam. She reports sensation intact. Radiographs are reviewed and demonstrate a comminuted intertrochanteric fracture of the left hip. Di scussed findings with the patient's daughter. Recommend operative intervention. Options for surgery or no surgery are discussed along with risks and benefits. I have recommended surgery and they agre ed to proceed. She did ambulate prior to injuring her ankle. She is at an extended care facility an d suffers from dementia. We talked about risks, benefits, rehab and recovery and an informed consent was obtained over the phone. Plan on a short troch nail today. Her vitals are stable. Her labs are noted. White count 7, hemogl obin 11, hematocrit 31, platelets are 239. PT/INR normal. PRP is noted. BUN and creatinine are nor mal. MRSA, nasal swab and COVID test, both negative. Job ID: [id number]
[2022-06-04] MEDS ORDERED: TRANEXAMIC ACID / 0.7% NACL 1000MG/100ML BAG IV ONE (10:35)
[2022-06-04] MEDS ORDERED: BUPIVACAINE 0.5 % 5 MG/1 ML MPF 30ML VIAL ONE (12:02)
[2022-06-04] MEDS ORDERED: LIDOCAINE 1% LOCAL 20 ML VIAL ONE (12:02)
[2022-06-04] MEDS ORDERED: PROPOFOL IV EMULSION 10 MG/ML 20 ML VIAL IV ONE (12:02)
--- NOTE | 2022-06-04 12:20 | Operative Report ---
Post Operative Report Pre & Post Diagnosis Operation Date: 06/04/22 10:00 Pre-Op Diagnosis: left hip intertrochanteric fracture Post-Op Diagnosis: Same I identified the patient and participated in the time-out.: Yes Procedure Operation Date: 06/04/22 10:00 Actual Procedures p Left Hip Long Trochanteric Nailing(Left) - Macario Bueno MD Surgeon Macario Bueno MD [employer] T[employer] Laya [facility] physicians clinical physician assistant no resident or fellow available Estimated Blood Loss 25 Findings Consistent with Post-Op Diagnosis Specimens None Anesthesia Type General Regional Complications none Disposition Accompanied Patient To Recovery: No Disposition: Recovery Room Indications Johanna is 86 years old. She suffers from dementia among other problems. She fell and sustained a comminuted left intertrochanteric hip fracture. Risks benefits options discussed with her daughter and she has elected to proceed with operative intervention. Description of Procedure Informed consent obtained. Patient identified. The operative site was identified as the left hip I marked with my initials. Preoperative surgical timeout performed. Preop dose of IV antibiotics was given. She also received TXA. She was positioned supine on the fracture table after administration of general anesthetic. The right leg was placed into the well-leg capone and physiologic abduction flexion and external rotation. She had a fracture boot on her right leg due to an injury there. This was all well-padded. A padded perineal post was utilized followed by longitudinal traction on the padded leg capone on the left side. The torso secured to the table and the arms were folded over the chest with abundant padding. The leg was prescribed prepped and draped in usual sterile fashion. DVT prophylaxis will be done postoperatively with early mobility mechanical devices and likely Lovenox. We will coordinate with medicine. The leg was placed into traction with internal rotation and slight abduction resulting in good alignment on the AP. The lesser trochanter was fractured off and this extended 4 cm down into the subtrochanteric region. A long nail was indicated. There was posterior sag on the lateral view which was corrected with an anterior directed force over the fracture site. This reduction maneuver was performed when instrumenting the hip and fixing the fracture. A 5 cm incision was made just proximal to the tip of the trochanter and in line with the shaft of the femur. A guidepin was introduced to be at the tip of the trochanter and in line with the shaft of the femur. Adjusted x2. The entry reamer was utilized followed by insertion of an intramedullary alignment leo confirmed to be intramedullary in multiplanar fluoroscopy. Leo length determined using the guide. The leo was assembled and inserted by hand and finished off with blows from the mallet. Tip of the leo top of the patella. [place] was determined on the lateral x-ray. The fracture was manually reduced and a guidepin introduced at the center center position. Length determined to be 95 mm. Lateral reamer. Triple reamer. Spiral blade within 10 mm of the apex of the femoral head in both the AP and lateral views and centered on both. The setscrew was advanced until tight and then backed off one quarter turn to allow compression. The proximal insertion apparatus was removed. The lag bolt was inserted using the jig through a accessory lateral incision. A distal interlocking screw was inserted in the dynamic mode using the perfect [place] technique. Incisions irrigated. The deep fascia the proximal incision was closed with interrupted #1 Vicryl. The deep subcu with 0 and the skin with lisa and 2-0 Vicryl. The leg was cleaned wet dry sponges and a bulky soft roll dressing was applied. Xeroform 4 x 4's ABD foam tape. She was taken off the fracture table and awakened from anesthesia taken to recovery room in stable condition. There were no specimens or complications. Counts were correct. Blood loss is estimated to be 25 cc. At the conclusion the operation I spoke to patient's daughter and informed of my findings. Postop instructions discussed. She can weight-bear as tolerated. She will need an extended care facility. Lovenox for DVT prophylaxis. PT and OT per protocol. The components inserted were the new generation [employer]ynthe[employer] troches nail 11 x 340 mm. After inserting the guide leo I did pass a 12.5 mm reamer which went easily through the isthmus. A 95 mm spiral blade and a 38 mm x 5 mm distal interlocking screw. I attest to the content of the Intraoperative Record and any orders documented therein. Any exceptions are noted below.
--- NOTE | 2022-06-04 12:25 | Operative Report ---
Post Operative Report Pre & Post Diagnosis Operation Date: 06/04/22 10:00 Pre-Op Diagnosis: left hip fracture Post-Op Diagnosis: left hip fracture I identified the patient and participated in the time-out.: Yes Procedure Operation Date: 06/04/22 10:00 Actual Procedures p Left Hip Long Trochanteric Nailing(Left) - Macario Bueno MD Surgeon Macario Bueno [employer] Driver Laya [facility] physicians graduate assistant no resident or fellow available Estimated Blood Loss 25 Findings Consistent with Post-Op Diagnosis left hip fracture Specimens None Anesthesia Type General Description of Procedure Patient was taken to the operating room, placed under general anesthesia, given 1gm IV ancef for surgical prophylaxis. Time out performed, prepped and draped in routine sterile fashion. I was present during the entire case, please see Dr. Bueno's operative report for further detail. Patient was awakened and taken to the recovery room in stable condition. I attest to the content of the Intraoperative Record and any orders documented therein. Any exceptions are noted below.
--- NOTE | 2022-06-04 12:38 | Fluoroscopy Report ---
FL hip LT 2-3V CLINICAL HISTORY: LEFT HIP TROCH NAIL TECHNIQUE: 5 views were obtained with the C-arm in the OR with the above procedure. Total fluoroscopy time was 2 minutes 2 seconds. Total skin dose was 24.23 mGy. Comparison: None available at the time of this dictation. FINDINGS/IMPRESSION: Intraoperative images were obtained of trochanteric nail placement Please correlate with intraoperative fluoroscopy and operative report. ACT 112: Negative or not required by law. Electronically signed by: Donis Ybarra M.D. 06/04/2022 12:37 PM
--- NOTE | 2022-06-04 13:27 | Anesthesiology Progress Note ---
Date of Service June 04, 2022 Anesthesia Post Procedure Vital Signs Vital Signs: Temp Pulse Pulse Pulse Resp BP Pulse Ox 06/04/22 13:22 98.1 F 82 16 149/65 H 96 06/04/22 12:57 97.7 F 90 14 151/83 H 96 06/04/22 12:45 97.3 F L 93 H 16 158/70 H 97 06/04/22 12:35 93 H 18 155/89 H 95 06/04/22 12:25 97.2 F L 91 H 13 174/76 H 99 06/04/22 08:00 06/04/22 08:05 06/04/22 08:03 99.1 F 84 18 128/70 97 06/03/22 22:25 98.8 F 100 H 14 116/66 95 06/03/22 20:38 06/03/22 17:15 06/03/22 16:45 97.7 F 85 16 152/85 H 99 06/03/22 16:38 06/03/22 16:38 97.7 F 85 16 152/84 H 99 06/03/22 15:40 90 18 131/57 L 96 Pulse Ox O2 Del Method O2 Del Method 06/04/22 13:22 Room Air 06/04/22 12:57 Room Air 06/04/22 12:45 Room Air 06/04/22 12:35 Room Air 06/04/22 12:25 Room Air 06/04/22 08:00 Room Air 06/04/22 08:05 97 06/04/22 08:03 Room Air 06/03/22 22:25 Room Air 06/03/22 20:38 Room Air 06/03/22 17:15 Room Air 06/03/22 16:45 Room Air 06/03/22 16:38 99 Room Air 06/03/22 16:38 Room Air 06/03/22 15:40 Room Air Pain Intensity Left Hip: Pain Intensity: 6 Transfer of Care Handoff Completed per policy Notes Mental Status: alert / awake / arousable and participated in evaluation Patient Amnestic to Procedure: Yes Nausea / Vomiting: adequately controlled Pain: adequately controlled Airway Patency, RR, SpO2: stable & adequate BP & HR: stable & adequate Hydration State: stable & adequate Anesthetic Complications: no major complications apparent and Pt Satisfied with anesthetic care
[2022-06-04] MEDS: D5W AND NSS 1,000 ML IV SCH (14:01)
[2022-06-04] MEDS: ENOXAPARIN INJ 40 MG/0.4 ML SYR SQ SCH (14:01)
[2022-06-04] MEDS: SERTRALINE HCL 50 MG TABLET PO SCH (15:43)
[2022-06-04] MEDS: QUEtiapine FUMARATE 25 MG TABLET PO SCH ×2 (15:43→21:04)
[2022-06-04] MEDS: ceFAZolin 1000MG 1,000 MG/7.5 ML SYR IV SCH (17:54)
[2022-06-04] MEDS ORDERED: TRANEXAMIC ACID / 0.7% NACL 1,000 MG/100 ML BAG IV ONE (18:30)
[2022-06-04] MEDS: DOCUSATE SODIUM/SENNA 50/8.6MG TAB PO SCH (21:04)
[2022-06-05] MEDS: ceFAZolin 1000MG 1,000 MG/7.5 ML SYR IV SCH (03:25)
[2022-06-05 05:36] LABS: Basophils # (auto) 0.03 K/uL (0-0.2); Basophils % (auto) 0.4 %; Eosinophils # (auto) 0.05 K/uL (0-0.50); Eosinophils % (auto) 0.6 %; Hematocrit (blood only) 25.1 % (34.1-44.9); Hemoglobin 8.3 g/dl (12.0-16.0); Immature Granulocytes # (auto) 0.08 K/uL (0.00-0.02); Lymphocytes # (auto) 1.31 K/uL (1.2-3.4); Lymphocytes % (auto) 15.6 %; Mean Corpuscular Hemoglobin 29.2 pg (25.0-34.0); Mean Corpuscular Hgb Conc 33.1 g/dL (32.0-36.0); Mean Corpuscular Volume 88.4 fL (80.0-100.0); Mean Platelet Volume 11.5 fL (9.4-12.3); Monocytes # (auto) 1.08 K/uL (0.24-0.82); Monocytes % (auto) 12.9 %; Neutrophils # (auto) 5.83 K/uL (1.4-6.5); Neutrophils % (auto) 69.5 %; Platelet Count 189 K/uL (130-400); RDW Coefficient of Variation 13.2 % (11.5-14.5); RDW Standard Deviation 42.8 fL (36.4-46.3); Red Blood Count 2.84 M/uL (3.93-5.22); White Blood Count 8.38 K/ul (4.8-10.8)
[2022-06-05 06:00] LABS: BUN Creatinine Ratio 19.3 (10-20); Creatinine Clr Calc Pharmacy 40.4 ml/min; Est GFR (African American) 75.1 ml/min; Est GFR (Non-African American) 64.8 ml/min; Magnesium 1.6 mg/dl (1.7-2.4); Potassium 3.7 mmol/L (3.5-5.1)
--- NOTE | 2022-06-05 07:56 | Hospitalist Progress Note ---
Date of Service June 05, 2022 Assessment & Plan (1) Fracture, proximal femur: (2) Fall: (3) Right foot injury: (4) Severe dementia: (5) DMII (diabetes mellitus, type 2): (6) HLD (hyperlipidemia): (7) CKD (chronic kidney disease), stage III: (8) GERD (gastroesophageal reflux disease): (9) HTN (hypertension): Plan L proximal femur fracture after a fall: -Hip xray: Comminuted and displaced intertrochanteric fracture of the proximal left femur -Pt was in a lot of pain with movement on admission --- morphine 1mg IV q6hr prn for pain management - Orthopedics consulted --periop Abx - cefazolin -- pt s/p Left Hip Long Trochanteric Nailing(Left) - Macario Bueno MD, on 06/04 - tolerated procedure well - She can weight-bear as tolerated. She will need an extended care facility. Lovenox for DVT prophylaxis. PT and OT per protocol. - dvt ppx - per orthopedics Acute blood loss anemia versus dilutional, postop Patient underwent left hip surgery Current hemoglobin 8.3, preop hemoglobin above 10 Expected, no need for further blood transfusion at this time Continue to closely monitor H&H DMII: -hold oral meds -ISS Severe dementia: -per family pt is AAOx0 at baseline -due to recent R foot injury pt is not ambulating well otherwise ambulates w/o any assistance - on Seroquel BID and Zoloft daily HTN/HLD/GERD: -not taking any meds at this time Diet: carb consistent DVT PPx: lovenox Code Status: DNR/DNI Emergency Contact: Daughter (Tatiana) [phone] Admission and Anticipated Discharge Date Admission Date: June 03, 2022 Subjective Pt seen in follow up of hip fracture s/p Left Hip Long Trochanteric Nailing(Left) - Macario Bueno MD, on 06/04 Currently laying in bed, in no acute distress, sleepy, when awake pleasantly confused No fevers, chills, chest pain, shortness of breath, abdominal pain, nausea vo miting Present with the pt's daughter and RN at the bedside. Patient usually only recognizes her , does not localize her children, is not alert oriented. Daughter reports to make sure that patient takes her meds otherwise she may not be so pleasant. Review of Systems Review of Systems: Unobtainable due to cognitive status Physical Exam Physical Exam: General: WD/WN, el beto F laying in bed, in NAD HEENT: NC/AT, Normal Con junctiva, Sclera i s non-icteric Lung s:.No signs of re spiratory distress , CTA, no wheezing or crackles Heart :+systolic murmur, Normal S1, S2 Abd ominal:ND, Soft, NT : Landeros sonam ter placed, draini ng yellow urine MS K: L lateral hip/t high - surgical dr ni applied, n o significant LE e maynor noted Psych: Awake pleasant, ho wever does not ans wer all questions appropriately -see ms at baseline due to dementia Results & Data Results & Data ([facility]) Vital Signs (Past 12 Hours) Vital Signs Temp Pulse Resp BP Pulse Ox O2 Del Method 06/05/22 03:30 37.5 C 06/05/22 02:00 37.6 C H 106 H 16 105/62 95 Room Air 06/04/22 21:00 Room Air 06/04/22 22:46 37.3 C 108 H 16 120/71 94 Room Air Laboratory Results 06/05/22 06/05/22 06/05/22 Range/Units 05:27 05:27 05:27 WBC 8.38 (4.8-10.8) K/ul RBC 2.84 L (3.93-5.22) M/uL Hgb 8.3 L (12.0-16.0) g/dl Hct 25.1 L (34.1-44.9) % MCV 88.4 (80.0-100.0) fL MCH 29.2 (25.0-34.0) pg MCHC 33.1 (32.0-36.0) g/dL RDW Std Deviation 42.8 (36.4-46.3) fL RDW Coeff of Manny 13.2 (11.5-14.5) % Plt Count 189 (130-400) K/uL MPV 11.5 (9.4-12.3) fL Immature Gran % (Auto) 1.0 % Neut % (Auto) 69.5 % Lymph % (Auto) 15.6 % [place] % (Auto) 12.9 % Eos % (Auto) 0.6 % Baso % (Auto) 0.4 % Neut # (Auto) 5.83 (1.4-6.5) K/uL Lymph # (Auto) 1.31 (1.2-3.4) K/uL [place] # (Auto) 1.08 H (0.24-0.82) K/uL Eos # (Auto) 0.05 (0-0.50) K/uL Baso # (Auto) 0.03 (0-0.2) K/uL Immature Gran # (Auto) 0.08 H (0.00-0.02) K/uL Sodium 140 (136-145) mmol/L Potassium 3.7 (3.5-5.1) mmol/L Chloride 110 H (98-107) mmol/L Carbon Dioxide 23 (21-32) mmol/L Anion Gap 7 (3-11) BUN 16 (6-23) mg/dl Creatinine 0.83 (0.6-1.2) mg/dl Est Cr Clr Drug Dosing 40.4 ml/min Est GFR ( Amer) 75.1 ml/min Est GFR (Non-Af Amer) 64.8 ml/min BUN/Creatinine Ratio 19.3 (10-20) Glucose 215 H (70-99(Fasting)) mg/dl POC Glucose (70-99) mg/dl Calcium 8.0 L (8.5-10.1) mg/dl Phosphorus 3.0 (2.5-4.9) mg/dl Magnesium 1.6 L (1.7-2.4) mg/dl Prealbumin Pending 25-OH Vitamin D Total 11.6 L (30-100) ng/ml 06/04/22 06/04/22 06/04/22 Range/Units 20:32 17:07 13:34 WBC (4.8-10.8) K/ul RBC (3.93-5.22) M/uL Hgb (12.0-16.0) g/dl Hct (34.1-44.9) % MCV (80.0-100.0) fL MCH (25.0-34.0) pg MCHC (32.0-36.0) g/dL RDW Std Deviation (36.4-46.3) fL RDW Coeff of Manny (11.5-14.5) % Plt Count (130-400) K/uL MPV (9.4-12.3) fL Immature Gran % (Auto) % Neut % (Auto) % Lymph % (Auto) % [place] % (Auto) % Eos % (Auto) % Baso % (Auto) % Neut # (Auto) (1.4-6.5) K/uL Lymph # (Auto) (1.2-3.4) K/uL [place] # (Auto) (0.24-0.82) K/uL Eos # (Auto) (0-0.50) K/uL Baso # (Auto) (0-0.2) K/uL Immature Gran # (Auto) (0.00-0.02) K/uL Sodium (136-145) mmol/L Potassium (3.5-5.1) mmol/L Chloride (98-107) mmol/L Carbon Dioxide (21-32) mmol/L Anion Gap (3-11) BUN (6-23) mg/dl Creatinine (0.6-1.2) mg/dl Est Cr Clr Drug Dosing ml/min Est GFR ( Amer) ml/min Est GFR (Non-Af Amer) ml/min BUN/Creatinine Ratio (10-20) Glucose (70-99(Fasting)) mg/dl POC Glucose 222 H 233 H 232 H (70-99) mg/dl Calcium (8.5-10.1) mg/dl Phosphorus (2.5-4.9) mg/dl Magnesium (1.7-2.4) mg/dl Prealbumin 25-OH Vitamin D Total (30-100) ng/ml Medications Administered Current Inpatient Medications Acetaminophen (Acetaminophen 325 Mg Tab) 650 mg PO Q6H PRN PRN Reason: pain/fever Stop: 07/03/22 16:37 Last Admin: 06/05/22 09:16 Dose: 650 mg Bisacodyl (Bisacodyl 10 Mg Supp) 10 mg IA DAILY PRN PRN Reason: Constipation Stop: 07/03/22 16:37 Dextrose (Dextrose 50% 50 Ml Syringe) 25 - 50 ml IV UD PRN; Protocol PRN Reason: Hypoglycemia Protocol Stop: 07/03/22 16:37 Enoxaparin Sodium (Enoxaparin Inj 40 Mg/0.4 Ml Syr) 40 mg SQ Q24H [facility] Stop: 07/04/22 13:14 Last Admin: 06/04/22 14:01 Dose: 40 mg Ergocalciferol (Ergocalciferol 50,000 Units 1250 Mcg Cap) 50,000 units PO Mo@0900 GABRIEL Stop: 07/05/22 08:59 Last Admin: 06/05/22 09:17 Dose: 50,000 units Glucagon (Glucagon For Inj 1 Mg Vial) 1 mg SQ UD PRN; Protocol PRN Reason: Hypoglycemia Protocol Stop: 07/03/22 16:37 Glucose (Glucose 40% Gel 15 Gm Tube) 15 - 30 gm PO UD PRN; Protocol PRN Reason: Hypoglycemia Protocol Stop: 07/03/22 16:37 Glucose (Glucose 10 Tab/Tube) 4 - 8 tab PO UD PRN; Protocol PRN Reason: Hypoglycemia Treatment Stop: 07/03/22 16:37 Insulin Aspart (Insulin Aspart Per Unit) 0 units SC ACHS [facility] Stop: 07/04/22 05:59 Last Admin: 06/05/22 12:20 Dose: 2 units Magnesium Hydroxide (Magnesium Hydroxide Susp 30 Ml Udc) 30 ml PO DAILY PRN PRN Reason: Constipation Stop: 07/03/22 16:37 Magnesium Oxide (Magnesium Oxide 400 Mg Tab) 400 mg PO QAM [facility]RIEL Stop: 07/05/22 08:59 Last Admin: 06/05/22 09:17 Dose: 400 mg Miscellaneous (Carbohydrates For Hypoglycemia ) 15 - 30 gm PO UD PRN PRN Reason: Hypoglycemia Protocol Stop: 07/03/22 16:37 Morphine Sulfate (Morphine Sulfate 2 Mg/Ml Carp) 1 mg IV Q6H PRN PRN Reason: Pain (1,2,3,4,5) & Pre PT Stop: 06/17/22 16:37 Last Admin: 06/03/22 17:21 Dose: 1 mg Naloxone HCl (Naloxone Hcl 0.4 Mg/1 Ml Vial/Carp) 0.1 mg IV UD PRN PRN Reason: Opiate Overdose Stop: 07/03/22 16:37 Quetiapine Fumarate (Quetiapine Fumarate 25 Mg Tablet) 50 mg PO BID [facility] Stop: 07/03/22 20:59 Last Admin: 06/05/22 09:17 Dose: 50 mg Senna/Docusate Sodium (Docusate Sodium/Senna 50/8.6mg Tab) 2 tab PO HS [facility]EL Stop: 07/03/22 20:59 Last Admin: 06/04/22 21:04 Dose: 2 tab Sertraline HCl (Sertraline Hcl 50 Mg Tablet) 50 mg PO DAILY GABRIEL Stop: 07/04/22 08:59 Last Admin: 06/05/22 09:53 Dose: 50 mg
[2022-06-05] MEDS: ACETAMINOPHEN 325 MG TAB PO PRN (09:16)
[2022-06-05] MEDS: QUEtiapine FUMARATE 25 MG TABLET PO SCH ×2 (09:17→20:33)
[2022-06-05] MEDS: MAGNESIUM OXIDE 400 MG TAB PO SCH (09:17)
[2022-06-05] MEDS: ERGOCALCIFEROL 50,000 UNITS 1250 MCG CAP PO SCH (09:17)
[2022-06-05] MEDS: INSULIN ASPART PER UNIT SC SCH ×4 (09:17→21:26)
--- NOTE | 2022-06-05 09:34 | Orthopedic Progress Note ---
Date of Service June 05, 2022 Assessment & Plan (1) S/p left hip fracture: Plan: POD1 s/p left hip ORIF with long troch nail by Dr Bueno WBAT with walker PT/OT Frequently ice operative area DVT prophylaxis: Lovenox 30BID 2-4 weeks, TEDS, foot pumps/SCDs while in hospital Pain control: Per primary Dressing: will change dressing tomorrow Discharge planning per case management and primary service Follow up with [facility] with Dr Bueno in 2 weeks for staple removal Discussed with Dr Bueno Admission and Anticipated Discharge Date Admission Date: June 03, 2022 Subjective Pt was seen and examined bedside. POD #1 s/p left hip open reduction internal fixation with long trochanteric nail by Dr Bueno. Pt was admitted last night for observation. No major events over night. Vitals are stable. Labs unremarkable. X-rays show normal post operative changed. Pt has severe dementia and did not respond to verbal questioning this morning. She was sitting up in her bed awake and eating with the help of the nurse. Physical Exam Physical Exam: General: Pt laying in hospital bed awake, in NAD, calm and cooperative during exam. Pt sitting up eating, does not appear to be in pain this morning Lower Extremity: Exam limited due to patient dementia and inability to respond to questioning or prompting this morning. Dressing in tact and not saturated. Calf supple. SCDs in place. Lower extremity noted to have good color and temperature with no signs of vascular or lymphatic insufficiency. Results & Data ([facility]) Vital Signs (Past 12 Hours) Vital Signs Temp Pulse Resp BP Pulse Ox O2 Del Method 06/05/22 07:57 37.3 C 95 H 18 115/66 96 Room Air 06/05/22 03:30 37.5 C 06/05/22 02:00 37.6 C H 106 H 16 105/62 95 Room Air 06/04/22 22:46 37.3 C 108 H 16 120/71 94 Room Air
[2022-06-05] MEDS: SERTRALINE HCL 50 MG TABLET PO SCH (09:53)
[2022-06-05] MEDS ORDERED: CHOLECALCIFEROL 1,000 UNITS 25 MCG TAB PO ONE (11:26)
[2022-06-05] MEDS: ENOXAPARIN INJ 40 MG/0.4 ML SYR SQ SCH (14:05)
[2022-06-05] MEDS: MoRPHine SULFATE 2 MG/ML CARP IV PRN (14:05)
[2022-06-05] MEDS: DOCUSATE SODIUM/SENNA 50/8.6MG TAB PO SCH (20:33)
[2022-06-06 06:27] LABS: Hematocrit (blood only) 22.7 % (34.1-44.9); Hemoglobin 7.5 g/dl (12.0-16.0); Mean Corpuscular Hemoglobin 29.3 pg (25.0-34.0); Mean Corpuscular Volume 88.7 fL (80.0-100.0); Mean Platelet Volume 11.7 fL (9.4-12.3); Platelet Count 174 K/uL (130-400); RDW Coefficient of Variation 13.2 % (11.5-14.5); RDW Standard Deviation 43.5 fL (36.4-46.3); Red Blood Count 2.56 M/uL (3.93-5.22); White Blood Count 7.66 K/ul (4.8-10.8)
[2022-06-06 06:51] LABS: BUN Creatinine Ratio 25.3 (10-20); Calcium 7.9 mg/dl (8.5-10.1); Creatinine Clr Calc Pharmacy 42.5 ml/min; Est GFR (African American) 79.7 ml/min; Est GFR (Non-African American) 68.7 ml/min; Magnesium 1.9 mg/dl (1.7-2.4); Phosphorus 2.3 mg/dl (2.5-4.9); Potassium 3.8 mmol/L (3.5-5.1)
[2022-06-06] MEDS: INSULIN ASPART PER UNIT SC SCH ×4 (08:47→21:03)
[2022-06-06] MEDS: QUEtiapine FUMARATE 25 MG TABLET PO SCH ×2 (08:48→20:04)
[2022-06-06] MEDS: SERTRALINE HCL 50 MG TABLET PO SCH (08:48)
[2022-06-06] MEDS: MAGNESIUM OXIDE 400 MG TAB PO SCH (08:48)
--- NOTE | 2022-06-06 08:52 | Orthopedic Progress Note ---
Date of Service June 06, 2022 Assessment & Plan (1) S/p left hip fracture: Plan: POD2 s/p left hip ORIF with long troch nail by Dr Bueno WBAT with walker PT/OT Frequently ice operative area DVT prophylaxis: Lovenox 30BID 2-4 weeks, TEDS, foot pumps/SCDs while in hospital Pain control: Per primary Dressing: dressing changed today with xeroform, 4x4s and tegaderm Discharge planning per case management and primary service Follow up as schedule with [facility] with Dr Bueno in 2 weeks for staple removal Discussed with Dr Bueno Admission and Anticipated Discharge Date Admission Date: June 03, 2022 Subjective Pt seen and examined bedside, POD2 left hip ORIF with Dr Bueno. She is sitting up eating. She is awake and alert this morning and says that she is doing okay. Her pain is overall controlled. Due to dementia history and physical exam limited but patient overall appears to be doing well and in no acute distress. Physical Exam Physical Exam: General: Pt laying in hospital bed awake, alert, in NAD, calm and cooperative during exam. Pt sitting up eating, does not appear to be in pain this morning Lower Extremity: Exam limited due to dementia. Dressing in tact and not saturated. Incisions clean, dry, well approximated with no purulent drainage or surrounding erythema. Calf supple. SCDs in place. Lower extremity noted to have good color and temperature with no signs of vascular or lymphatic insufficiency. Patient is able to wiggle toes and pump her ankle up and down. Patient Cam boot is also in place on right lower extremity. Results & Data ([facility]) Vital Signs (Past 12 Hours) Vital Signs Temp Pulse Resp BP Pulse Ox O2 Del Method 06/06/22 08:00 36.4 C L 90 14 149/73 H 97 Room Air 06/06/22 07:35 Room Air 06/05/22 22:16 36.8 C 101 H 18 115/66 95 Room Air
[2022-06-06] MEDS ORDERED: SODIUM CHLORIDE 0.9% 250 ML IV PRN (09:10)
--- NOTE | 2022-06-06 10:51 | XRay Report ---
XR foot RT min 3V routine CLINICAL HISTORY: previous injury TECHNIQUE: 3 views of the right foot were obtained. Comparison: None available at the time of this dictation. FINDINGS: A linear density is seen in the right foot measuring approximately 14 mm in length, possibly in the p lantar soft tissues. No acute fracture is seen. The joint spaces are well preserved. No soft tissue a bnormality is seen. IMPRESSION: No acute fracture seen. Linear radiodensity, possibly in the plantar soft tissues at the level of the fourth digit, may represent a foreign body. Correlation with physical exam is recommended. ACT 112: Negative or not required by law. Electronically signed by: Donis Ybarra M.D. 06/06/2022 10:50 AM
--- NOTE | 2022-06-06 11:09 | Hospitalist Progress Note ---
Date of Service June 06, 2022 Assessment & Plan (1) Fracture, proximal femur: (2) Fall: (3) Right foot injury: (4) Severe dementia: (5) DMII (diabetes mellitus, type 2): (6) HLD (hyperlipidemia): (7) CKD (chronic kidney disease), stage III: (8) GERD (gastroesophageal reflux disease): (9) HTN (hypertension): Plan L proximal femur fracture after a fall: -Hip xray: Comminuted and displaced intertrochanteric fracture of the proximal left femur -- pt s/p Left Hip Long Trochanteric Nailing(Left) - Macario Bueno MD, on 06/04 - tolerated procedure well - WBAT with walker . She will need an extended care facility. Lovenox 40mg Q24hr x 2-4 weeks for DVT prophylaxis. PT and OT per protocol. -Dressing: Xeroform, 4x4s and tegaderm -Follow up with orthopedics in 2 weeks for staple removal Acute blood loss anemia versus dilutional, postop Patient underwent left hip surgery Current hemoglobin 7.5, preop hemoglobin above 10 Expected, per ortho pt to be transfused x 2 units today, will give 10mg IV lasix in between units Continue to closely monitor H&H DMII: -hold oral meds, glimepiride, tradjenta, metformin - a1c 8.0 on 05/08/22 -ISS -bsgs consistently in the 200s, will add Lantus 5units bid with parameters Severe dementia: -per family pt is AAOx0 at baseline -due to recent R foot injury pt is not ambulating well otherwise ambulates w/o any assistance - on Seroquel BID and Zoloft daily HTN/HLD/GERD: -not taking any meds at this time R foot injury pt in cam boot, nwb obtain Xrays today - pt was to f/u as OP on 06/06; however given hospitalization will be unable to make appt, she was following Kasi Rangel at [facility] injury in question was a possible occult calcaneal fx to RLE, plan was conservative tx with NWB and cam boot, family did not want any further imaging at time, including CT due to difficulty given pts dementia will order foot xrays, calcaneal xrays attending discussed with orthopedic JOAQUIN Messer, they will review images Hypophosphatemia phos 2.3 will give additional supplementation recheck in a.m. Diet: carb consistent DVT PPx: lovenox Code Status: DNR/DNI Emergency Contact: Daughter (Tatiana) [phone] Admission and Anticipated Discharge Date Admission Date: June 03, 2022 Supervising Physician Co-Signing Physician Notes Patient seen and examined by me, care coordinated with Emmanuel Fischer PA-C, please refer to her note above for further detail. Patient is currently lying in bed, in no acute distress, pleasantly confused. She reports no complaints. Discussed with orthopedics this morning, recommends 2 units of PRBCs for acute blood loss anemia/postop anemia. Also discussed her foot injury, that happened prior to her hospitalization. X-rays ordered, orthopedics to review while inpatient. Patient will need to be on Lovenox for DVT prophylaxis, and SNF after discharge. Met with patient's daughter at the bedside over the weekend, at baseline, patient sometimes recognizes her , usually does not recognize her children. Mental status at baseline. MD Carmen Subjective Pt was seen and examined in room 319-1. Follow up L Femur Fx. Pt with dementia and unable to provide reliable hx. ROS unobtainable. Review of Systems Review of Systems: Unobtainable due to cognitive status Physical Exam Physical Exam: Gen: Elderly, F, lying in bed, alert and oriented to self only(first and middle name), NAD HEENT: Normocephalic, atraumatic, conjunctivae moist, sclerae anicteric, mucous membranes dry memnbranes Lung: Clear to Auscultation bilaterally, no wheezes/rales/rhonchi Heart: Regular rate, regular rhythm, 2/6 DANYEL, rubs, or gallops Abdomen: Soft, NT, ND +BS x 4 Extremities: L hip dressing cdi, ice pack in place, NVI distally, R foot cam boot Skin: Warm, no rash, negative turgor. Results & Data Results & Data ([facility]) Vital Signs (Past 12 Hours) Vital Signs Temp Pulse Resp BP Pulse Ox Pulse Ox O2 Del Method 06/06/22 08:00 98 06/06/22 08:00 36.4 C L 90 14 149/73 H 97 Room Air 06/06/22 07:35 Room Air O2 Del Method 06/06/22 08:00 Room Air 06/06/22 08:00 06/06/22 07:35 Laboratory Results Short CBC 06/06/22 Range/Units 06:05 WBC 7.66 (4.8-10.8) K/ul Hgb 7.5 L (12.0-16.0) g/dl Hct 22.7 L (34.1-44.9) % Plt Count 174 (130-400) K/uL BMP 06/06/22 06:05 Sodium 139 Potassium 3.8 Chloride 109 H Carbon Dioxide 24 BUN 20 Creatinine 0.79 Glucose 192 H Calcium 7.9 L Medications Administered Current Inpatient Medications Acetaminophen (Acetaminophen 325 Mg Tab) 650 mg PO Q6H PRN PRN Reason: pain/fever Stop: 07/03/22 16:37 Last Admin: 06/05/22 09:16 Dose: 650 mg Bisacodyl (Bisacodyl 10 Mg Supp) 10 mg DE DAILY PRN PRN Reason: Constipation Stop: 07/03/22 16:37 Dextrose (Dextrose 50% 50 Ml Syringe) 25 - 50 ml IV UD PRN; Protocol PRN Reason: Hypoglycemia Protocol Stop: 07/03/22 16:37 Enoxaparin Sodium (Enoxaparin Inj 40 Mg/0.4 Ml Syr) 40 mg SQ Q24H [facility]ABRIEL Stop: 07/04/22 13:14 Last Admin: 06/05/22 14:05 Dose: 40 mg Ergocalciferol (Ergocalciferol 50,000 Units 1250 Mcg Cap) 50,000 units PO Mo@0900 GABRIEL Stop: 07/05/22 08:59 Last Admin: 06/05/22 09:17 Dose: 50,000 units Glucagon (Glucagon For Inj 1 Mg Vial) 1 mg SQ UD PRN; Protocol PRN Reason: Hypoglycemia Protocol Stop: 07/03/22 16:37 Glucose (Glucose 40% Gel 15 Gm Tube) 15 - 30 gm PO UD PRN; Protocol PRN Reason: Hypoglycemia Protocol Stop: 07/03/22 16:37 Glucose (Glucose 10 Tab/Tube) 4 - 8 tab PO UD PRN; Protocol PRN Reason: Hypoglycemia Treatment Stop: 07/03/22 16:37 Sodium Chloride (Nss) 250 mls @ 15 mls/hr IV .[id number] PRN PRN Reason: For Transfusion Stop: 06/06/22 19:10 Insulin Aspart (Insulin Aspart Per Unit) 0 units SC ACHS [facility] Stop: 07/04/22 05:59 Last Admin: 06/06/22 08:47 Dose: 2 units Magnesium Hydroxide (Magnesium Hydroxide Susp 30 Ml Udc) 30 ml PO DAILY PRN PRN Reason: Constipation Stop: 07/03/22 16:37 Magnesium Oxide (Magnesium Oxide 400 Mg Tab) 400 mg PO QAM [facility] Stop: 07/05/22 08:59 Last Admin: 06/06/22 08:48 Dose: 400 mg Miscellaneous (Carbohydrates For Hypoglycemia ) 15 - 30 gm PO UD PRN PRN Reason: Hypoglycemia Protocol Stop: 07/03/22 16:37 Morphine Sulfate (Morphine Sulfate 2 Mg/Ml Carp) 1 mg IV Q6H PRN PRN Reason: Pain (1,2,3,4,5) & Pre PT Stop: 06/17/22 16:37 Last Admin: 06/05/22 14:05 Dose: 1 mg Naloxone HCl (Naloxone Hcl 0.4 Mg/1 Ml Vial/Carp) 0.1 mg IV UD PRN PRN Reason: Opiate Overdose Stop: 07/03/22 16:37 Quetiapine Fumarate (Quetiapine Fumarate 25 Mg Tablet) 50 mg PO BID [facility] Stop: 07/03/22 20:59 Last Admin: 06/06/22 08:48 Dose: 50 mg Senna/Docusate Sodium (Docusate Sodium/Senna 50/8.6mg Tab) 2 tab PO HS [facility] Stop: 07/03/22 20:59 Last Admin: 06/05/22 20:33 Dose: 2 tab Sertraline HCl (Sertraline Hcl 50 Mg Tablet) 50 mg PO DAILY GABRIEL Stop: 07/04/22 08:59 Last Admin: 06/06/22 08:48 Dose: 50 mg
[2022-06-06] MEDS: ACETAMINOPHEN 325 MG TAB PO PRN (11:49)
--- NOTE | 2022-06-06 11:55 | XRay Report ---
XR calcaneus RT min 2V HISTORY: 86 years-old Female prior injury acute injury of the right foot COMPARISON: Right foot radiographs of same day TECHNIQUE: 2 views of the right calcaneus FINDINGS: Degenerative spurring of the calcaneus. 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 Demineralized appearance of the bones. Mild diffuse soft tissue prominence. T here is an acute comminuted fracture involving the calcaneal body which appears to extend into the an terior calcaneal process. Fracture fragments are displaced medially up to 5 mm. IMPRESSION: Acute comminuted slightly displaced calcaneal fracture with adjacent soft tissue swelling . ACT 112: Negative or not required by law. The above report was generated using voice recognition software. It may contain grammatical, syntax o r spelling errors. Electronically signed by: Du Abad M.D. 06/06/2022 11:54 AM
[2022-06-06] MEDS ORDERED: FUROSEMIDE INJ 20 MG/2 ML VIAL IV ONE (12:00)
[2022-06-06] MEDS: ENOXAPARIN INJ 40 MG/0.4 ML SYR SQ SCH (13:25)
[2022-06-06] MEDS: POT PHOSPHATE MONOBASIC W/ SOD TAB PO SCH ×3 (13:25→20:04)
[2022-06-06] MEDS: LANTUS PER UNIT CHARGE SQ SCH ×2 (13:28→21:03)
--- NOTE | 2022-06-06 14:44 | XRay Report ---
XR ankle RT min 3V routine CLINICAL HISTORY: prior injury TECHNIQUE: 3 views of the right ankle were obtained. Comparison: None available at the time of this dictation. FINDINGS: No acute fractures are present. Degenerative changes are seen. The ankle mortise is intact. Vascular calcifications are seen. IMPRESSION: No evidence of acute osseous injury. ACT 112: Negative or not required by law. Electronically signed by: Donis Ybarra M.D. 06/06/2022 2:43 PM
--- NOTE | 2022-06-06 16:07 | Progress Notes ---
DATE OF SERVICE: 06/06/2022 The patient is seen in conjunction with the physician's patent legal assistant. For further details, refer to thei r dictation. We saw and evaluated together and in agreement with the plan. Doing well postop day #2 from her left intertrochanteric fracture. Dressings have been changed. The leg shows no significant bruising or swelling. She can flex and extend her ankle and toes on both s ides and has trace posterior tibial pulses bilaterally and a trace DP pulse on the right. She is kno wn to have a right heel injury. This was 3 weeks ago. There is some bruising of the right foot. Sh e can flex and extend the ankle, the ankle is nontender to palpation. Her Achilles is intact. Her s trength is normal bilaterally. I spoke with her daughter and reviewed the hip films. Additionally, we looked at the foot, ankle and calcaneus films on the right. These show a mildly displaced fracture involving the body of the calc aneus. There is also a foreign body metal noted in the right foot. She will not be able to bear weight on the right leg for a total of 6 or 8 weeks from the time of her injury. Therefore, at this time, she will not be able to ambulate. She can do range of motion of t he left lower extremity and she could stand on the left leg if she is able to understand that she is not able to put weight on the right leg. She will need placement. We will continue DVT prophylaxis. She had acute blood loss, postsurgical anemia, which required 2 units of blood today. We will contin ue to monitor. I spoke with the daughter and updated her. Job ID: [id number]
[2022-06-06] MEDS: DOCUSATE SODIUM/SENNA 50/8.6MG TAB PO SCH (20:04)
[2022-06-07 07:15] LABS: BUN Creatinine Ratio 32.8 (10-20); Calcium 7.9 mg/dl (8.5-10.1); Creatinine Clr Calc Pharmacy 52.4 ml/min; Est GFR (Non-African American) 81.9 ml/min; Phosphorus 2.8 mg/dl (2.5-4.9); Potassium 3.4 mmol/L (3.5-5.1)
[2022-06-07] MEDS ORDERED: POTASSIUM CHLORIDE CRTAB 20 MEQ TABCR PO ONE (07:36)
[2022-06-07] MEDS: MAGNESIUM OXIDE 400 MG TAB PO SCH (07:57)
[2022-06-07] MEDS: SERTRALINE HCL 50 MG TABLET PO SCH (07:57)
[2022-06-07] MEDS: QUEtiapine FUMARATE 25 MG TABLET PO SCH ×2 (07:58→20:14)
[2022-06-07 08:31] LABS: Hematocrit (blood only) 30.4 % (34.1-44.9); Hemoglobin 10.6 g/dl (12.0-16.0); Mean Corpuscular Hemoglobin 29.4 pg (25.0-34.0); Mean Corpuscular Hgb Conc 34.9 g/dL (32.0-36.0); Mean Corpuscular Volume 84.4 fL (80.0-100.0); Platelet Count 183 K/uL (130-400); RDW Coefficient of Variation 13.3 % (11.5-14.5); RDW Standard Deviation 41.4 fL (36.4-46.3); White Blood Count 6.85 K/ul (4.8-10.8)
[2022-06-07] MEDS: INSULIN ASPART PER UNIT SC SCH ×4 (09:20→21:50)
[2022-06-07] MEDS: LANTUS PER UNIT CHARGE SQ SCH ×2 (09:20→21:50)
--- NOTE | 2022-06-07 09:30 | Orthopedic Progress Note ---
Date of Service June 07, 2022 Assessment & Plan (1) S/p left hip fracture: Plan: POD3 - s/p left hip ORIF with long troch nail by Dr Bueno WBAT with walker LLE; with right LE NWB may be just out of bed to chair. PT/OT Frequently ice operative area DVT prophylaxis: Lovenox 30 BID 2-4 weeks, TEDS, foot pumps/SCDs while in hospital Pain control: Per primary Dressing: Keep incision covered, redress as needed. Discharge planning per case management and primary service Follow up as schedule with [facility] with Dr Bueno in [address] Bueno present for today's visit. (2) Right calcaneal fracture: Plan: Subacute - approximately 3 weeks old Maintain NWB Right lower extremity with boot in place at all times. Encourage ice and elevation as needed for pain/swelling. Dr. Bueno reveiwed x-rays continue conservative treatment. Will continue to follow. Admission and Anticipated Discharge Date Admission Date: June 03, 2022 Subjective Patient resting in bed, being fed breakfast by [employer]. History unobtainable due to dementia. Review of Systems Review of Systems: Unobtainable due to cognitive status Physical Exam Musculoskeletal: Bood right foot intact. Left hip dressings clean, dry and intact. Mild edema left thigh. Teds in place LLE. Foot nontender and warm. Results & Data ([facility]) Vital Signs (Past 12 Hours) Vital Signs Temp Pulse Resp BP Pulse Ox Pulse Ox O2 Del Method 06/07/22 08:15 36.7 C 79 20 122/68 98 Room Air 06/07/22 04:00 37.5 C 89 17 123/71 96 Room Air 06/07/22 04:00 96 06/06/22 23:55 96 O2 Del Method 06/07/22 08:15 06/07/22 04:00 06/07/22 04:00 Room Air 06/06/22 23:55 Room Air
[2022-06-07] MEDS: ENOXAPARIN INJ 40 MG/0.4 ML SYR SQ SCH (13:03)
--- NOTE | 2022-06-07 13:14 | Hospitalist Progress Note ---
Date of Service June 07, 2022 Assessment & Plan (1) Fracture, proximal femur: (2) Fall: Plan: -Left hip fracture s/p mechanical fall -Hip xray: Comminuted and displaced intertrochanteric fracture of the proximal left femur -- pt s/p Left Hip Long Trochanteric Nailing(Left) - Macario Bueno MD, on 06/04 - tolerated procedure well - WBAT with walker . She will need an extended care facility. Lovenox 40mg Q24hr x 4 weeks for DVT prophylaxis. PT and OT per protocol. -Dressing: Xeroform, 4x4s and tegaderm -Follow up with orthopedics in 2 weeks for staple removal -tramadol added for additional pain control (3) Postoperative anemia due to acute blood loss: Plan: Patient underwent left hip surgery Hb dropped to 7.5, preop hemoglobin above 10 Follow-up H/H post 2 units pRBC was appropriate (4) Right foot injury: Plan: pt in cam boot, nwb obtain Xrays today - pt was to f/u as OP on 06/06; however given hospitalization will be unable to make appt, she was following Kasi Rangel at [facility] injury in question was a possible occult calcaneal fx to RLE, plan was conservative tx with NWB and cam boot, family did not want any further imaging at time, including CT due to difficulty given pts dementia Calcaneal fracture seen on xrays performed 06/06 Discuss further management with ortho (5) Severe dementia: Plan: -per family pt is AAOx0 at baseline -due to recent R foot injury pt is not ambulating well otherwise ambulates w/o any assistance - on Seroquel BID and Zoloft daily -reorient as needed. (6) DMII (diabetes mellitus, type 2): Plan: -hold oral meds, glimepiride, tradjenta, metformin - a1c 8.0 on 05/08/22 -ISS and increased Lantus with poorly controlled fasting glucose (7) CKD (chronic kidney disease), stage III: Plan: chronic, around her baseline. Cont to renally dose medications as needed and avoid nephrotoxic substances. (8) DVT prophylaxis: Plan: DVT PPx: lovenox Code Status: DNR/DNI Emergency Contact: Daughter Reginaldo) [phone] Dispo-to rehab when bed available. Medically stable for discharge. [facility] Admission and Anticipated Discharge Date Admission Date: June 03, 2022 Subjective 86 yo F with dementia admitted for L hip fracture s/p trochanteric nailing on 06/04 patient has dementia limiting assessment when I walked in she was in distress, holding her hip and crying about pain nurse aware and given Tramadol Per RN, patient is tolerating all food and medications nonweightbearing and plans to go to rehab. Review of Systems Review of Systems: ROS is limited 2/2 dementia, Physical Exam Physical Exam: CONSTITUTIONAL: WNWD, vitals as above, generally well- appearing, was in distress 2/2 pain initially and then was able to calm down after talking with her some. EYES:normal conjunctivae, no scleral icterus, ENT: external ear and nose normal, MMM NECK: trachea midline RESPIRATORY: clear to auscultation bilaterally, no crackles, rales or wheezes, normal respiratory effort CARDIOVASCULAR: regular rate and rhythm, S1 and 2 heard without murmurs, gallops or rubs, no JVD, no peripheral edema CHEST: inspection of chest was normal GASTROINTESTINAL: soft, nontender, ND, no guarding MUSCULOSKELETAL: strength 5/5 throughout, head is normocephalic and atraumatic SKIN: warm and dry NEUROLOGIC: CN 2-12 grossly intact, no sensory deficit, normal cognition, normal speech, no tremor PSYCHIATRIC: alert cooperative and oriented to person, place and time. Euthymic mood, makes good eye contact, language grossly intact, recent and remote memory grossly intact. Results & Data Results & Data ([facility]) Vital Signs (Past 12 Hours) Vital Signs Temp Pulse Resp BP Pulse Ox Pulse Ox O2 Del Method 06/07/22 08:15 36.7 C 79 20 122/68 98 Room Air 06/07/22 04:00 37.5 C 89 17 123/71 96 Room Air 06/07/22 04:00 96 O2 Del Method 06/07/22 08:15 06/07/22 04:00 06/07/22 04:00 Room Air Laboratory Results Short CBC 06/07/22 Range/Units 06:23 WBC 6.85 (4.8-10.8) K/ul Hgb 10.6 L D (12.0-16.0) g/dl Hct 30.4 L (34.1-44.9) % Plt Count 183 (130-400) K/uL BMP 06/07/22 06:23 Sodium 138 Potassium 3.4 L Chloride 106 Carbon Dioxide 25 BUN 21 Creatinine 0.64 Glucose 158 H Calcium 7.9 L Medications Administered Current Inpatient Medications Acetaminophen (Acetaminophen 325 Mg Tab) 650 mg PO Q6H PRN PRN Reason: pain/fever Stop: 07/03/22 16:37 Last Admin: 06/06/22 11:49 Dose: 650 mg Bisacodyl (Bisacodyl 10 Mg Supp) 10 mg WV DAILY PRN PRN Reason: Constipation Stop: 07/03/22 16:37 Dextrose (Dextrose 50% 50 Ml Syringe) 25 - 50 ml IV UD PRN; Protocol PRN Reason: Hypoglycemia Protocol Stop: 07/03/22 16:37 Enoxaparin Sodium (Enoxaparin Inj 40 Mg/0.4 Ml Syr) 40 mg SQ Q24H GABRIEL Stop: 07/04/22 13:14 Last Admin: 06/07/22 13:03 Dose: 40 mg Ergocalciferol (Ergocalciferol 50,000 Units 1250 Mcg Cap) 50,000 units PO Mo@0900 [facility] Stop: 07/05/22 08:59 Last Admin: 06/05/22 09:17 Dose: 50,000 units Glucagon (Glucagon For Inj 1 Mg Vial) 1 mg SQ UD PRN; Protocol PRN Reason: Hypoglycemia Protocol Stop: 07/03/22 16:37 Glucose (Glucose 40% Gel 15 Gm Tube) 15 - 30 gm PO UD PRN; Protocol PRN Reason: Hypoglycemia Protocol Stop: 07/03/22 16:37 Glucose (Glucose 10 Tab/Tube) 4 - 8 tab PO UD PRN; Protocol PRN Reason: Hypoglycemia Treatment Stop: 07/03/22 16:37 Insulin Aspart (Insulin Aspart Per Unit) 0 units SC ACHS GABRIEL Stop: 07/04/22 05:59 Last Admin: 06/07/22 13:03 Dose: 2 units Insulin Glargine (Lantus Per Unit Charge) 10 units SQ BID GABRIEL Stop: 07/07/22 08:59 Last Admin: 06/07/22 09:20 Dose: 10 units Magnesium Hydroxide (Magnesium Hydroxide Susp 30 Ml Udc) 30 ml PO DAILY PRN PRN Reason: Constipation Stop: 07/03/22 16:37 Magnesium Oxide (Magnesium Oxide 400 Mg Tab) 400 mg PO QAM GABRIEL Stop: 07/05/22 08:59 Last Admin: 06/07/22 07:57 Dose: 400 mg Miscellaneous (Carbohydrates For Hypoglycemia ) 15 - 30 gm PO UD PRN PRN Reason: Hypoglycemia Protocol Stop: 07/03/22 16:37 Morphine Sulfate (Morphine Sulfate 2 Mg/Ml Carp) 1 mg IV Q6H PRN PRN Reason: Pain (1,2,3,4,5) & Pre PT Stop: 06/17/22 16:37 Last Admin: 06/05/22 14:05 Dose: 1 mg Naloxone HCl (Naloxone Hcl 0.4 Mg/1 Ml Vial/Carp) 0.1 mg IV UD PRN PRN Reason: Opiate Overdose Stop: 07/03/22 16:37 Quetiapine Fumarate (Quetiapine Fumarate 25 Mg Tablet) 50 mg PO BID GABRIEL Stop: 07/03/22 20:59 Last Admin: 06/07/22 07:58 Dose: 50 mg Senna/Docusate Sodium (Docusate Sodium/Senna 50/8.6mg Tab) 2 tab PO HS GABRIEL Stop: 07/03/22 20:59 Last Admin: 06/06/22 20:04 Dose: 2 tab Sertraline HCl (Sertraline Hcl 50 Mg Tablet) 50 mg PO DAILY GABRIEL Stop: 07/04/22 08:59 Last Admin: 06/07/22 07:57 Dose: 50 mg
[2022-06-07] MEDS ORDERED: traMADol HCL 50 MG TABLET PO PRN (15:24)
[2022-06-07] MEDS ORDERED: ACETAMINOPHEN 325 MG TAB PO PRN (15:25)
[2022-06-07] MEDS ORDERED: traMADol HCL 50 MG TABLET ONE (15:28)
[2022-06-07] MEDS: DOCUSATE SODIUM/SENNA 50/8.6MG TAB PO SCH (20:15)
[2022-06-08] MEDS: SERTRALINE HCL 50 MG TABLET PO SCH (08:41)
[2022-06-08] MEDS: MAGNESIUM OXIDE 400 MG TAB PO SCH (08:42)
[2022-06-08] MEDS: QUEtiapine FUMARATE 25 MG TABLET PO SCH ×2 (08:42→21:56)
[2022-06-08] MEDS: INSULIN ASPART PER UNIT SC SCH ×4 (09:14→21:52)
[2022-06-08] MEDS: LANTUS PER UNIT CHARGE SQ SCH ×2 (09:15→21:52)
[2022-06-08] MEDS: ENOXAPARIN INJ 40 MG/0.4 ML SYR SQ SCH (13:15)
--- NOTE | 2022-06-08 14:39 | Hospitalist Progress Note ---
Date of Service June 08, 2022 Assessment & Plan (1) Fracture, proximal femur: (2) Fall: Plan: -Left hip fracture s/p mechanical fall -Hip xray: Comminuted and displaced intertrochanteric fracture of the proximal left femur -- pt s/p Left Hip Long Trochanteric Nailing(Left) - Macario Bueno MD, on 06/04 - tolerated procedure well - WBAT with walker . She will need an extended care facility. Lovenox 40mg Q24hr x 4 weeks for DVT prophylaxis. PT and OT per protocol. -Dressing: Xeroform, 4x4s and tegaderm -Follow up with orthopedics in 2 weeks for staple removal -tramadol added for additional pain control (3) Postoperative anemia due to acute blood loss: Plan: Patient underwent left hip surgery Hb dropped to 7.5, preop hemoglobin above 10 Follow-up H/H post 2 units pRBC was appropriate (4) Right foot injury: Plan: pt in cam boot, nwb obtain Xrays today - pt was to f/u as OP on 06/06; however given hospitalization will be unable to make appt, she was following Kasi Rangel at [facility] injury in question was a possible occult calcaneal fx to RLE, plan was conservative tx with NWB and cam boot, family did not want any further imaging at time, including CT due to difficulty given pts dementia Calcaneal fracture seen on xrays performed 06/06 Discuss further management with ortho (5) Severe dementia: Plan: -per family pt is AAOx0 at baseline -due to recent R foot injury pt is not ambulating well otherwise ambulates w/o any assistance - on Seroquel BID and Zoloft daily -reorient as needed (6) DMII (diabetes mellitus, type 2): Plan: -hold oral meds, glimepiride, tradjenta, metformin - a1c 8.0 on 05/08/22 -ISS and increased Lantus with poorly controlled fasting glucose (7) CKD (chronic kidney disease), stage III: Plan: chronic, around her baseline. Cont to renally dose medications as needed and avoid nephrotoxic substances. (8) DVT prophylaxis: Plan: DVT PPx: lovenox Code Status: DNR/DNI Emergency Contact: Daughter Reginaldo) [phone] Dispo-to rehab when bed available. Medically stable for discharge. Admission and Anticipated Discharge Date Admission Date: June 03, 2022 Supervising Physician Co-Signing Physician Notes I have seen and examined the patient and have discussed the case with the provider above. I agree with the assessment and plan as stated. 86 yo female who is deliriuos this afternoon. She is hallucinating and is unable to answer questions appropriately. She denies pain but this is unreliable. Low threshold to give her tramadol overnight. Agree with scheduled Tylenol. Likely delirium is drivien by the lack of sleep overnight. Hope for her to reset tonight. H/H with appropriate response to blood. Awaiting placement. Physical exam as above. DO Yusuf Subjective 86 yo F with dementia admitted for L hip fracture s/p trochanteric nailing on 06/04 per RN, was up a lot overnight with and has been resting for past 1/2 hour with daughter at bedside states she is comfortable, denying pain of hip Per RN, patient is tolerating all food and medications nonweightbearing and plans to go to rehab Review of Systems Review of Systems: ROS is limited 2/2 dementia Physical Exam Physical Exam: Gen: Elderly female, lying in bed, alert and oriented to self only (first and middle name), NAD, sleeping but awakens to questions HEENT: Normocephalic, atraumatic, conjunctivae moist, sclerae anicteric, mucous membranes dry membranes Lung: Clear to Auscultation bilaterally, no wheezes/rales/rhonchi Heart: Regular rate, regular rhythm, 2/6 DANYEL, rubs, or gallops Abdomen: Soft, NT, ND +BS x 4 Extremities: L hip dressing cdi, ice pack in place, NVI distally, R foot cam boot Skin: Warm, no rash, negative turgor. Results & Data Results & Data ([facility]) Vital Signs (Past 12 Hours) Vital Signs Temp Pulse Resp BP Pulse Ox O2 Del Method 06/08/22 07:50 Room Air 06/08/22 07:53 36.5 C 84 14 121/68 95 Room Air Diagnostic Findings Cervical Spine CT 06/03/22 13:[address] DOSE: HISTORY: fall eval for fx TECHNIQUE: Multiaxial CT images of the cervical spine were performed and reformatted in the sagittal and coronal plane without the use of contrast. A dose lowering technique was utilized adhering to the principles of ALARA. COMPARISON: None. FINDINGS: No fractures. No subluxation. Prevertebral soft tissues and the C1-C2 interval are intact. No pneumothorax. IMPRESSION: No fractures within the cervical spine. ACT 112: Negative or not required by law. Electronically signed by: Taqueria Hewitt M.D. 06/03/2022 2:[address] 06/03/22 13:[address] DOSE: 1426.88 mGy.cm HISTORY: fall eval fr bleed TECHNIQUE: Multiaxial CT images of the head were performed without the use of intravenous contrast. Automated exposure control was utilized for this study. A dose lowering technique was utilized adhering to the principles of ALARA. Comparison: Brain MRI 08/16/2015. Findings: The paranasal sinuses and mastoid air cells are clear. Partial opacification of the right posterior ethmoid air cells. The remaining paranasal sinuses and mastoid air cells are clear. There is mild motion artifact. Atrophy and microvascular ischemic changes are noted. 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 Ventricular prominence favors central volume loss given the patient's age. Bilateral basal ganglia calcifications are noted. Impression: No acute intracranial abnormality. Atrophy and microvascular ischemic changes. ACT 112: Negative or not required by law. Electronically signed by: Taqueria Hewitt M.D. 06/03/2022 2:15 PM Chest X-Ray 06/03/22 13:08 XR chest 1V portable HISTORY: Hip fracture. Preop. COMPARISON: Chest 08/15/2015. FINDINGS: No pneumothorax. No pleural effusions. There is chronic interstitial thickening, unchanged. No new focal lung consolidations. No evidence for pulmonary edema. The cardiac silhouette is normal in size. There are calcifications within the aortic knob. Prior cholecystectomy. IMPRESSION: Stable chronic interstitial thickening. No acute process within the chest. ACT 112: Negative or not required by law. Electronically signed by: Taqueria Hewitt M.D. 06/03/2022 2:43 PM Hip/Pelvis X-Ray 06/03/22 13:12 XR hip LT 2V w pelvis CLINICAL HISTORY: Fall. Left hip pain. COMPARISON STUDY: None. FINDINGS: There is a comminuted and displaced intertrochanteric fracture of the proximal left femur. No dislocation. The lesser trochanter fragment demonstrates 12 mm of medial displacement. The visualized pelvic bones and right hip are intact. IMPRESSION: Comminuted and displaced intertrochanteric fracture of the proximal left femur. ACT 112: Negative or not required by law. Electronically signed by: Taqueria Hewitt M.D. 06/03/2022 2:42 PM Hip X-Ray 06/04/22 00:00 FL hip LT 2-3V CLINICAL HISTORY: LEFT HIP TROCH NAIL TECHNIQUE: 5 views were obtained with the C-arm in the OR with the above procedure. Total fluoroscopy time was 2 minutes 2 seconds. Total skin dose was 24.23 mGy. Comparison: None available at the time of this dictation. FINDINGS/IMPRESSION: Intraoperative images were obtained of trochanteric nail placement Please correlate with intraoperative fluoroscopy and operative report. ACT 112: Negative or not required by law. Electronically signed by: Donis Ybarra M.D. 06/04/2022 12:37 PM Foot X-Ray 06/06/22 09:24 XR foot RT min 3V routine CLINICAL HISTORY: previous injury TECHNIQUE: 3 views of the right foot were obtained. Comparison: None available at the time of this dictation. FINDINGS: A linear density is seen in the right foot measuring approximately 14 mm in length, possibly in the plantar soft tissues. No acute fracture is seen. The joint spaces are well preserved. No soft tissue abnormality is seen. IMPRESSION: No acute fracture seen. Linear radiodensity, possibly in the plantar soft tissues at the level of the fourth digit, may represent a foreign body. Correlation with physical exam is recommended. ACT 112: Negative or not required by law. Electronically signed by: Donis Ybarra M.D. 06/06/2022 10:50 AM Ankle X-Ray 06/06/22 11:02 XR ankle RT min 3V routine CLINICAL HISTORY: prior injury TECHNIQUE: 3 views of the right ankle were obtained. Comparison: None available at the time of this dictation. FINDINGS: No acute fractures are present. Degenerative changes are seen. The ankle mortise is intact. Vascular calcifications are seen. IMPRESSION: No evidence of acute osseous injury. ACT 112: Negative or not required by law. Electronically signed by: Donis Ybarra M.D. 06/06/2022 2:43 PM Calcaneus X-Ray 06/06/22 11:02 XR calcaneus RT min 2V HISTORY: 86 years-old Female prior injury acute injury of the right foot COMPARISON: Right foot radiographs of same day TECHNIQUE: 2 views of the right calcaneus FINDINGS: Degenerative spurring of the calcaneus. 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 Demineralized appearance of the bones. Mild diffuse soft tissue prominence. There is an acute comminuted fracture involving the calcaneal body which appears to extend into the anterior calcaneal process. Fracture fragments are displaced medially up to 5 mm. IMPRESSION: Acute comminuted slightly displaced calcaneal fracture with adjacent soft tissue swelling. ACT 112: Negative or not required by law. The above report was generated using voice recognition software. It may contain grammatical, syntax or spelling errors. Electronically signed by: Du Abad M.D. 06/06/2022 11:54 AM
[2022-06-08] MEDS: ACETAMINOPHEN 500 MG TAB PO SCH ×2 (17:51→22:01)
[2022-06-08] MEDS: DOCUSATE SODIUM/SENNA 50/8.6MG TAB PO SCH (21:55)
[2022-06-09] MEDS: ACETAMINOPHEN 500 MG TAB PO SCH ×3 (05:43→19:53)
[2022-06-09] MEDS: INSULIN ASPART PER UNIT SC SCH ×4 (08:54→20:58)
[2022-06-09] MEDS: LANTUS PER UNIT CHARGE SQ SCH (08:54)
[2022-06-09] MEDS: SERTRALINE HCL 50 MG TABLET PO SCH (08:55)
[2022-06-09] MEDS: MAGNESIUM OXIDE 400 MG TAB PO SCH (08:55)
[2022-06-09] MEDS: QUEtiapine FUMARATE 25 MG TABLET PO SCH ×2 (08:55→19:53)
[2022-06-09] MEDS: ENOXAPARIN INJ 40 MG/0.4 ML SYR SQ SCH (12:47)
--- NOTE | 2022-06-09 15:48 | Hospitalist Progress Note ---
Date of Service June 09, 2022 Assessment & Plan (1) Fracture, proximal femur: (2) Fall: Plan: Left hip fracture s/p mechanical fall Hip xray: Comminuted and displaced intertrochanteric fracture of the proximal left femur Pt s/p Left Hip Long Trochanteric Nailing(Left) - Macario Bueno MD, on 06/04 WBAT with walker . She will need an extended care facility. Lovenox 40mg Q24hr x 4 weeks for DVT prophylaxis. PT and OT per protocol. Dressing: Xeroform, 4x4s and Tegaderm Follow up as schedule with [facility] with Dr Bueno in 2 weeks for staple removal Scheduled Tylenol for pain control, icing frequently - concern uncontrolled pain is contributing to post-op delirium. Will trial tramadol for 3 doses to see if mentation improves (3) Postoperative anemia due to acute blood loss: Plan: Patient underwent left hip surgery Hb dropped to 7.5, preop hemoglobin above 10 Follow-up H/H post 2 units pRBC was appropriate (4) Right calcaneal fracture: Plan: Subacute - approximately 3 weeks old Maintain NWB Right lower extremity with cam boot in place at all times per ortho Encourage ice and elevation as needed for pain/swelling Dr. Bueno reviewed x-rays continue conservative treatment (5) Severe dementia: Plan: Per family pt is AAOx0 at baseline Due to recent R foot injury pt is not ambulating well otherwise ambulates w/o any assistance On Seroquel BID and Zoloft daily Reorient as needed (6) DMII (diabetes mellitus, type 2): Plan: Hold oral meds, glimepiride, Tradjenta, metformin A1c 8.0 on 05/08/22 ISS and increased Lantus with poorly controlled fasting glucose (7) CKD (chronic kidney disease), stage III: Plan: Chronic, around her baseline. Cont to renally dose medications as needed and avoid nephrotoxic substances (8) DVT prophylaxis: Plan: DVT PPx: lovenox Code Status: DNR/DNI Emergency Contact: Daughter Reginaldo) [phone] Dispo-to rehab when bed available. Medically stable for discharge. (9) Delirium: Admission and Anticipated Discharge Date Admission Date: June 03, 2022 Supervising Physician Co-Signing Physician Notes I have seen and examined the patient and have discussed the case with the provider above. I agree with the assessment and plan as stated. Delirium is worse today. Cannot obtain ROS. I am concerned her pain may be uncontrolled. Agree with scheduling low dose tramadol with APAP for the time being. No changes on physical exam today. As above. Will order repeat labs in am. Keep good day/night cycles. Yusuf, DO Subjective This is a 86 yo F with dementia admitted for L hip fracture s/p trochanteric nailing on 06/04 Per RN, got a bit more sleep last evening and was comforted with baby doll. More alert today and answers questions but still with delirium and underlying dementia. Denies pain. Cooperative with exam and with nursing. Eating meals and taking medications without issue. Nonweightbearing and plans to go to rehab. ROS limited 2/2 dementia. Review of Systems Review of Systems: ROS is limited 2/2 dementia Physical Exam Physical Exam: Gen: Elderly female, lying in bed, alert and oriented to self only (first and middle name), NAD, alert but not oriented HEENT: Normocephalic, atraumatic, conjunctivae moist, sclerae anicteric, mucous membranes dry membranes Lung: Clear to Auscultation bilaterally, no wheezes/rales/rhonchi Heart: Regular rate, regular rhythm, 2/6 DANYEL, rubs, or gallops Abdomen: Soft, NT, ND +BS x 4 Extremities: L hip dressing cdi, ice pack in place, NVI distally, R foot cam boot Skin: Warm, no rash, negative turgor. Results & Data Results & Data ([facility]) Vital Signs (Past 12 Hours) Vital Signs Temp Pulse Resp BP Pulse Ox O2 Del Method 06/09/22 06:48 36.6 C 73 18 123/73 94 Room Air
--- NOTE | 2022-06-09 16:09 | Progress Notes ---
DATE OF SERVICE: 06/09/2022. She is resting comfortably in bed. She will be heading to extended care facility in the next couple of days. Wounds are benign. There is no hematoma formation or drainage. Redressed. She is weightb earing as tolerated on the left leg, but is nonweightbearing on the right due to her calcaneal fractu re. I will follow up with her in the office about 2 weeks postop. Continue DVT prophylaxis. Job ID: [id number]
[2022-06-09] MEDS: traMADol HCL 50 MG TABLET PO SCH (17:37)
[2022-06-09] MEDS: DOCUSATE SODIUM/SENNA 50/8.6MG TAB PO SCH (19:53)
[2022-06-09] MEDS ORDERED: LANTUS PER UNIT CHARGE SQ SCH (21:00)
[2022-06-10] MEDS: traMADol HCL 50 MG TABLET PO SCH ×2 (01:21→08:33)
[2022-06-10] MEDS: ACETAMINOPHEN 500 MG TAB PO SCH ×3 (05:02→21:32)
[2022-06-10 05:56] LABS: Hematocrit (blood only) 34.7 % (34.1-44.9); Hemoglobin 11.5 g/dl (12.0-16.0); Mean Corpuscular Hgb Conc 33.1 g/dL (32.0-36.0); Mean Corpuscular Volume 87.4 fL (80.0-100.0); Mean Platelet Volume 11.2 fL (9.4-12.3); Platelet Count 239 K/uL (130-400); RDW Coefficient of Variation 13.2 % (11.5-14.5); RDW Standard Deviation 41.9 fL (36.4-46.3); Red Blood Count 3.97 M/uL (3.93-5.22); White Blood Count 6.96 K/ul (4.8-10.8)
[2022-06-10 06:26] LABS: BUN Creatinine Ratio 34.9 (10-20); Calcium 8.6 mg/dl (8.5-10.1); Creatinine Clr Calc Pharmacy 53.2 ml/min; Est GFR (African American) 95.5 ml/min; Est GFR (Non-African American) 82.4 ml/min; Potassium 4.1 mmol/L (3.5-5.1)
[2022-06-10] MEDS: INSULIN ASPART PER UNIT SC SCH ×4 (09:13→21:44)
[2022-06-10] MEDS: SERTRALINE HCL 50 MG TABLET PO SCH (09:16)
[2022-06-10] MEDS: MAGNESIUM OXIDE 400 MG TAB PO SCH (09:16)
[2022-06-10] MEDS: QUEtiapine FUMARATE 25 MG TABLET PO SCH ×2 (09:16→21:34)
[2022-06-10] MEDS: LANTUS PER UNIT CHARGE SQ SCH ×2 (09:42→21:45)
[2022-06-10] MEDS ORDERED: GLYCERIN ADULT 12 SUPP/BOX SUPP PR PRN (12:18)
[2022-06-10] MEDS: ENOXAPARIN INJ 40 MG/0.4 ML SYR SQ SCH (14:48)
[2022-06-10] MEDS: POLYETHYLENE (MIRALAX) 17 GM PACK PO SCH ×2 (14:48→21:34)
--- NOTE | 2022-06-10 15:42 | Hospitalist Progress Note ---
Date of Service June 10, 2022 Assessment & Plan (1) Fracture, proximal femur: (2) Fall: Plan: Left hip fracture s/p mechanical fall Hip xray: Comminuted and displaced intertrochanteric fracture of the proximal left femur Pt s/p Left Hip Long Trochanteric Nailing(Left) - Macario Bueno MD, on 06/04 WBAT with walker on the left, NWB on the right 2/2 calcaneal fracture.. She will need an extended care facility. Lovenox 40mg Q24hr x 4 weeks for DVT prophylaxis. PT and OT per protocol. Dressing: Xeroform, 4x4s and Tegaderm Follow up as schedule with [facility] with Dr Bueno in 2 weeks for staple removal Cont with Tylenol and tramadol for pain (3) Delirium: Plan: Hospital-induced delirium. Cont tylenol and tramadol for pain control in case this was a trigger. Reorient and ensure any teeth in place if needed, hearing aids are in place and turned on during the day, glasses within reach for her and good day/night cycles observed including turning off the TV at night and opening the shades during the day. (4) Postoperative anemia due to acute blood loss: Plan: Patient underwent left hip surgery Hb dropped to 7.5, preop hemoglobin above 10 Follow-up H/H post 2 units pRBC was appropriate H/H is stable. (5) Right calcaneal fracture: Plan: Subacute - approximately 3 weeks old Maintain NWB Right lower extremity with cam boot in place at all times per ortho Encourage ice and elevation as needed for pain/swelling Dr. Bueno reviewed x-rays continue conservative treatment (6) Severe dementia: Plan: Per family pt is AAOx0 at baseline Due to recent R foot injury pt is not ambulating well otherwise ambulates w/o any assistance On Seroquel BID and Zoloft daily Reorient as needed (7) DMII (diabetes mellitus, type 2): Plan: Hold oral meds, glimepiride, Tradjenta, metformin A1c 8.0 on 05/08/22 ISS and increased Lantus with poorly controlled fasting glucose (8) CKD (chronic kidney disease), stage III: Plan: Chronic, around her baseline. Cont to renally dose medications as needed and avoid nephrotoxic substances (9) DVT prophylaxis: Plan: DVT PPx: lovenox Code Status: DNR/DNI Emergency Contact: Daughter (Tatiana) [phone] Dispo-to rehab when bed available. Medically stable for discharge. Tried to contact daughter by phone to update her on mom's status. She was not there so I left a message on her voicemail. Emily Goldberg [facility] and [facility]tic[facility]ated Discharge Date Admission Date: June 03, 2022 Subjective This is a 86 yo F with dementia admitted for L hip fracture s/p trochanteric nailing on 06/04 She is delirious again today and cannot answer questions appropriately She is lying in bed in NAD Review of Systems Review of Systems: ROS is limited 2/2 dementia Physical Exam Physical Exam: CONSTITUTIONAL: WNWD, vitals as above, generally well- appearing, EYES: normal conjunctivae, no scleral icterus, ENT: external ear and nose normal, MMM NECK: trachea midline RESPIRATORY: clear to auscultation bilaterally, no crackles, rales or wheezes, normal respiratory effort CARDIOVASCULAR: regular rate and rhythm, S1 and 2 heard without murmurs, gallops or rubs, no JVD, no peripheral edema CHEST: inspection of chest was normal GASTROINTESTINAL: soft, nontender, ND, no guarding MUSCULOSKELETAL: strength 5/5 throughout, head is normocephalic and atraumatic, CAM boot in place on her right foot SKIN: warm and dry, incision on left hip covered with c/d/i dressing. NEUROLOGIC: CN 2-12 grossly intact, no sensory deficit, normal cognition, normal speech, no tremor PSYCHIATRIC: alert and cooperative but cannot answer questions appropriately, +delirium Results & Data Results & Data ([facility]) Vital Signs (Past 12 Hours) Vital Signs Temp Pulse Resp BP Pulse Ox O2 Del Method 06/10/22 06:45 36.8 C 81 14 131/68 90 Room Air Laboratory Results Short CBC 06/10/22 Range/Units 05:43 WBC 6.96 (4.8-10.8) K/ul Hgb 11.5 L (12.0-16.0) g/dl Hct 34.7 (34.1-44.9) % Plt Count 239 (130-400) K/uL BMP 06/10/22 05:43 Sodium 141 Potassium 4.1 Chloride 106 Carbon Dioxide 27 BUN 22 Creatinine 0.63 Glucose 147 H Calcium 8.6 Medications Administered Current Inpatient Medications Acetaminophen (Acetaminophen 500 Mg Tab) 1,000 mg PO Q8 [facility] Stop: 07/08/22 16:44 Last Admin: 06/10/22 14:48 Dose: 1,000 mg Dextrose (Dextrose 50% 50 Ml Syringe) 25 - 50 ml IV UD PRN; Protocol PRN Reason: Hypoglycemia Protocol Stop: 07/03/22 16:37 Enoxaparin Sodium (Enoxaparin Inj 40 Mg/0.4 Ml Syr) 40 mg SQ Q24H [facility] Stop: 07/04/22 13:14 Last Admin: 06/10/22 14:48 Dose: 40 mg Ergocalciferol (Ergocalciferol 50,000 Units 1250 Mcg Cap) 50,000 units PO Mo@0900 [facility] Stop: 07/05/22 08:59 Last Admin: 06/05/22 09:17 Dose: 50,000 units Glucagon (Glucagon For Inj 1 Mg Vial) 1 mg SQ UD PRN; Protocol PRN Reason: Hypoglycemia Protocol Stop: 07/03/22 16:37 Glucose (Glucose 40% Gel 15 Gm Tube) 15 - 30 gm PO UD PRN; Protocol PRN Reason: Hypoglycemia Protocol Stop: 07/03/22 16:37 Glucose (Glucose 10 Tab/Tube) 4 - 8 tab PO UD PRN; Protocol PRN Reason: Hypoglycemia Treatment Stop: 07/03/22 16:37 Glycerin (Glycerin Adult 12 Supp/Box Supp) 1 supp [place] DAILY PRN PRN Reason: Constipation Stop: 07/10/22 12:17 Insulin Aspart (Insulin Aspart Per Unit) 0 units SC ACHS [facility] Stop: 07/04/22 05:59 Last Admin: 06/10/22 13:00 Dose: Not Given Insulin Glargine (Lantus Per Unit Charge) 14 units SQ QAM [facility] Stop: 07/10/22 08:59 Last Admin: 06/10/22 09:42 Dose: Not Given Insulin Glargine (Lantus Per Unit Charge) 20 units SQ HS [facility] Stop: 07/10/22 20:59 Magnesium Hydroxide (Magnesium Hydroxide Susp 30 Ml Udc) 30 ml PO DAILY PRN PRN Reason: Constipation Stop: 07/03/22 16:37 Last Admin: 06/10/22 13:00 Dose: 30 ml Magnesium Oxide (Magnesium Oxide 400 Mg Tab) 400 mg PO QAM [facility] Stop: 07/05/22 08:59 Last Admin: 06/10/22 09:16 Dose: 400 mg Miscellaneous (Carbohydrates For Hypoglycemia ) 15 - 30 gm PO UD PRN PRN Reason: Hypoglycemia Protocol Stop: 07/03/22 16:37 Naloxone HCl (Naloxone Hcl 0.4 Mg/1 Ml Vial/Carp) 0.1 mg IV UD PRN PRN Reason: Opiate Overdose Stop: 07/03/22 16:37 Polyethylene Glycol (Polyethylene (Miralax) 17 Gm Pack) 17 gm PO TID [facility] Stop: 07/10/22 13:59 Last Admin: 06/10/22 14:48 Dose: 17 gm Quetiapine Fumarate (Quetiapine Fumarate 25 Mg Tablet) 50 mg PO BID [facility] Stop: 07/03/22 20:59 Last Admin: 06/10/22 09:16 Dose: 50 mg Senna/Docusate Sodium (Docusate Sodium/Senna 50/8.6mg Tab) 2 tab PO HS [facility] Stop: 07/03/22 20:59 Last Admin: 06/09/22 19:53 Dose: 2 tab Sertraline HCl (Sertraline Hcl 50 Mg Tablet) 50 mg PO DAILY [facility] Stop: 07/04/22 08:59 Last Admin: 06/10/22 09:16 Dose: 50 mg Tramadol HCl (Tramadol Hcl 50 Mg Tablet) 25 mg PO Q8H [facility] Stop: 06/10/22 16:44 Last Admin: 06/10/22 08:33 Dose: 25 mg
[2022-06-10] MEDS: DOCUSATE SODIUM/SENNA 50/8.6MG TAB PO SCH (21:31)
[2022-06-11] MEDS: ACETAMINOPHEN 500 MG TAB PO SCH ×3 (06:38→21:54)
[2022-06-11] MEDS ORDERED: traMADol HCL 50 MG TABLET PO PRN (08:05)
[2022-06-11] MEDS: POLYETHYLENE (MIRALAX) 17 GM PACK PO SCH ×3 (08:17→22:08)
[2022-06-11] MEDS: MAGNESIUM OXIDE 400 MG TAB PO SCH (08:18)
[2022-06-11] MEDS: QUEtiapine FUMARATE 25 MG TABLET PO SCH ×2 (08:18→21:54)
[2022-06-11] MEDS: SERTRALINE HCL 50 MG TABLET PO SCH (08:18)
[2022-06-11] MEDS: LANTUS PER UNIT CHARGE SQ SCH ×2 (08:55→22:01)
[2022-06-11] MEDS: INSULIN ASPART PER UNIT SC SCH ×4 (08:56→22:07)
[2022-06-11] MEDS: ENOXAPARIN INJ 40 MG/0.4 ML SYR SQ SCH (13:25)
--- NOTE | 2022-06-11 14:50 | Hospitalist Progress Note ---
Date of Service June 11, 2022 Assessment & Plan (1) Fracture, proximal femur: (2) Fall: Plan: Left hip fracture s/p mechanical fall Hip xray: Comminuted and displaced intertrochanteric fracture of the proximal left femur Pt s/p Left Hip Long Trochanteric Nailing(Left) - Macario Bueno MD, on 06/04 WBAT with walker on the left, NWB on the right 2/2 calcaneal fracture.. She will need an extended care facility. Lovenox 40mg Q24hr x 4 weeks for DVT prophylaxis. PT and OT per protocol. Dressing: Xeroform, 4x4s and Tegaderm Follow up as schedule with [facility] with Dr Bueno in 2 weeks for staple removal Cont with Tylenol and tramadol for pain (3) Delirium: Plan: Hospital-induced delirium. Cont tylenol and tramadol for pain control in case this was a trigger. Reorient and ensure any teeth in place if needed, hearing aids are in place and turned on during the day, glasses within reach for her and good day/night cycles observed including turning off the TV at night and opening the shades during the day. (4) Postoperative anemia due to acute blood loss: Plan: Patient underwent left hip surgery Hb dropped to 7.5, preop hemoglobin above 10 Follow-up H/H post 2 units pRBC was appropriate H/H is stable. (5) Right calcaneal fracture: Plan: Subacute - approximately 3 weeks old Maintain NWB Right lower extremity with cam boot in place at all times per ortho Encourage ice and elevation as needed for pain/swelling Dr. Bueno reviewed x-rays continue conservative treatment (6) Severe dementia: Plan: Per family pt is AAOx0 at baseline Due to recent R foot injury pt is not ambulating well otherwise ambulates w/o any assistance On Seroquel BID and Zoloft daily Reorient as needed (7) DMII (diabetes mellitus, type 2): Plan: Hold oral meds, glimepiride, Tradjenta, metformin A1c 8.0 on 05/08/22 ISS and increased Lantus with poorly controlled fasting glucose (8) CKD (chronic kidney disease), stage III: Plan: Chronic, around her baseline. Cont to renally dose medications as needed and avoid nephrotoxic substances (9) DVT prophylaxis: Plan: DVT PPx: lovenox Code Status: DNR/DNI Emergency Contact: Daughter (Tatiana) [phone] Dispo-to rehab when bed available. Medically stable for discharge. DO Wilfredo Larson Hospitalist Admission and Anticipated Discharge Date Admission Date: June 03, 2022 Subjective This is a 86 yo F with dementia admitted for L hip fracture s/p trochanteric n ailing on 06/04 She is delirious again today and cannot answer questions appropriately She is lying in bed in NAD Unfortunately she is covered in stool and feces is all over Physical exam deferred and nurses were alerted Prior to my evaluation of her I did contact her daughter by phone this morning and discussed the delirium and the plan. She says this is not unexpected for mom and verbalized that all her questions were answered at this time. Review of Systems Review of Systems: ROS is limited 2/2 dementia Physical Exam Physical Exam: CONSTITUTIONAL: WNWD, vitals as above, generally well- appearing, NAD but is delirious and is covered in feces holding her baby doll. EYES: normal conjunctivae, no scleral icterus, ENT: external ear and nose normal, MMM NECK: trachea midline RESPIRATORY: deferred CARDIOVASCULAR: deferred CHEST: deferred GASTROINTESTINAL: deferred MUSCULOSKELETAL: CAM boot in place on her right foot SKIN: warm and dry NEUROLOGIC: +delirious Results & Data Results & Data ([facility]) Vital Signs (Past 12 Hours) Vital Signs Temp Pulse Resp BP Pulse Ox O2 Del Method 06/11/22 07:30 Room Air 06/11/22 06:07 36.7 C 76 14 125/75 98 Room Air Medications Administered Current Inpatient Medications Acetaminophen (Acetaminophen 500 Mg Tab) 1,000 mg PO Q8 [facility] Stop: 07/08/22 16:44 Last Admin: 06/11/22 13:25 Dose: 1,000 mg Dextrose (Dextrose 50% 50 Ml Syringe) 25 - 50 ml IV UD PRN; Protocol PRN Reason: Hypoglycemia Protocol Stop: 07/03/22 16:37 Enoxaparin Sodium (Enoxaparin Inj 40 Mg/0.4 Ml Syr) 40 mg SQ Q24H [facility] Stop: 07/04/22 13:14 Last Admin: 06/11/22 13:25 Dose: 40 mg Ergocalciferol (Ergocalciferol 50,000 Units 1250 Mcg Cap) 50,000 units PO Mo@0900 [facility] Stop: 07/05/22 08:59 Last Admin: 06/05/22 09:17 Dose: 50,000 units Glucagon (Glucagon For Inj 1 Mg Vial) 1 mg SQ UD PRN; Protocol PRN Reason: Hypoglycemia Protocol Stop: 07/03/22 16:37 Glucose (Glucose 40% Gel 15 Gm Tube) 15 - 30 gm PO UD PRN; Protocol PRN Reason: Hypoglycemia Protocol Stop: 07/03/22 16:37 Glucose (Glucose 10 Tab/Tube) 4 - 8 tab PO UD PRN; Protocol PRN Reason: Hypoglycemia Treatment Stop: 07/03/22 16:37 Glycerin (Glycerin Adult 12 Supp/Box Supp) 1 supp [place] DAILY PRN PRN Reason: Constipation Stop: 07/10/22 12:17 Last Admin: 06/11/22 08:28 Dose: 1 supp Insulin Aspart (Insulin Aspart Per Unit) 0 units SC ACHS [facility] Stop: 07/04/22 05:59 Last Admin: 06/11/22 13:28 Dose: 2 units Insulin Glargine (Lantus Per Unit Charge) 14 units SQ QAM [facility] Stop: 07/10/22 08:59 Last Admin: 06/11/22 08:55 Dose: Not Given Insulin Glargine (Lantus Per Unit Charge) 20 units SQ HS [facility] Stop: 07/10/22 20:59 Last Admin: 06/10/22 21:45 Dose: 20 units Magnesium Hydroxide (Magnesium Hydroxide Susp 30 Ml Udc) 30 ml PO DAILY PRN PRN Reason: Constipation Stop: 07/03/22 16:37 Last Admin: 06/10/22 13:00 Dose: 30 ml Magnesium Oxide (Magnesium Oxide 400 Mg Tab) 400 mg PO QAM [facility] Stop: 07/05/22 08:59 Last Admin: 06/11/22 08:18 Dose: 400 mg Miscellaneous (Carbohydrates For Hypoglycemia ) 15 - 30 gm PO UD PRN PRN Reason: Hypoglycemia Protocol Stop: 07/03/22 16:37 Naloxone HCl (Naloxone Hcl 0.4 Mg/1 Ml Vial/Carp) 0.1 mg IV UD PRN PRN Reason: Opiate Overdose Stop: 07/03/22 16:37 Polyethylene Glycol (Polyethylene (Miralax) 17 Gm Pack) 17 gm PO TID [facility] Stop: 07/10/22 13:59 Last Admin: 06/11/22 13:26 Dose: 17 gm Quetiapine Fumarate (Quetiapine Fumarate 25 Mg Tablet) 25 mg PO BID [facility] Stop: 07/11/22 08:59 Last Admin: 06/11/22 08:18 Dose: 25 mg Senna/Docusate Sodium (Docusate Sodium/Senna 50/8.6mg Tab) 2 tab PO HS [facility] Stop: 07/03/22 20:59 Last Admin: 06/10/22 21:31 Dose: 2 tab Sertraline HCl (Sertraline Hcl 50 Mg Tablet) 50 mg PO DAILY [facility] Stop: 07/04/22 08:59 Last Admin: 06/11/22 08:18 Dose: 50 mg Tramadol HCl (Tramadol Hcl 50 Mg Tablet) 50 mg PO Q6H PRN PRN Reason: Breakthrough Pain Stop: 07/11/22 08:04
[2022-06-11] MEDS: DOCUSATE SODIUM/SENNA 50/8.6MG TAB PO SCH (22:07)
[2022-06-12] MEDS: ACETAMINOPHEN 500 MG TAB PO SCH ×3 (06:17→21:08)
[2022-06-12 06:27] LABS: Hematocrit (blood only) 32.5 % (34.1-44.9); Hemoglobin 10.9 g/dl (12.0-16.0); Mean Corpuscular Hemoglobin 28.9 pg (25.0-34.0); Mean Corpuscular Hgb Conc 33.5 g/dL (32.0-36.0); Mean Corpuscular Volume 86.2 fL (80.0-100.0); Mean Platelet Volume 11.7 fL (9.4-12.3); Platelet Count 250 K/uL (130-400); RDW Coefficient of Variation 13.4 % (11.5-14.5); RDW Standard Deviation 42.5 fL (36.4-46.3); Red Blood Count 3.77 M/uL (3.93-5.22); White Blood Count 6.18 K/ul (4.8-10.8)
[2022-06-12 07:51] LABS: BUN Creatinine Ratio 28.4 (10-20); Calcium 8.5 mg/dl (8.5-10.1); Creatinine Clr Calc Pharmacy 45.3 ml/min; Est GFR (African American) 86.2 ml/min; Est GFR (Non-African American) 74.4 ml/min; Potassium 4.2 mmol/L (3.5-5.1)
[2022-06-12] MEDS: MAGNESIUM OXIDE 400 MG TAB PO SCH (08:13)
[2022-06-12] MEDS: QUEtiapine FUMARATE 25 MG TABLET PO SCH ×2 (08:13→21:08)
[2022-06-12] MEDS: SERTRALINE HCL 50 MG TABLET PO SCH (08:14)
[2022-06-12] MEDS: ERGOCALCIFEROL 50,000 UNITS 1250 MCG CAP PO SCH (08:14)
[2022-06-12] MEDS ORDERED: POLYETHYLENE (MIRALAX) 17 GM PACK PO PRN (08:14)
[2022-06-12] MEDS: LANTUS PER UNIT CHARGE SQ SCH ×2 (08:44→21:27)
[2022-06-12] MEDS: INSULIN ASPART PER UNIT SC SCH ×4 (08:47→21:26)
--- NOTE | 2022-06-12 10:46 | Orthopedic Progress Note ---
Date of Service June 12, 2022 Assessment & Plan (1) S/p left hip fracture: Plan: POD8 - s/p left hip ORIF with long troch nail by Dr Bueno WBAT with walker LLE; with right LE NWB may be just out of bed to chair. PT/OT Frequently ice operative area DVT prophylaxis: Lovenox 30 BID 2-4 weeks, TEDS, foot pumps/SCDs while in hospital Pain control: Per primary Dressing: Dressing reinforced today. Keep incision covered, redress as needed. Discharge planning per case management and primary service - anticipated discharge tomorrow Follow up as schedule with [facility] with Dr Bueno in 2 weeks for staple removal Discussed with Dr Bueno (2) Right calcaneal fracture: Plan: Subacute - approximately 3 weeks old Maintain NWB Right lower extremity with boot in place at all times. Encourage ice and elevation as needed for pain/swelling. Dr. Bueno reveiwed x-rays continue conservative treatment. Admission and Anticipated Discharge Date Admission Date: June 03, 2022 Subjective Pt seen and examined bedside. She is holding a baby and pretending to come its hair. She is in a state of delirium and unable to answer questions. She does not recall having hip surgrey. Physical Exam Physical Exam: Upon examination of left hip dressing is in tact on distal incision. There was no dressing on middle incision and dressing was not in tact on proximal incision. Dressing was changed on middle and proximal incisions with xeroform, 4x4s and tegaderm. Incisions were clean, dry, with no erythema or drainage. No hematoma present. Results & Data ([facility]) Vital Signs (Past 12 Hours) Vital Signs Temp Pulse Resp BP Pulse Ox O2 Del Method 06/12/22 08:09 36.7 C 79 16 98/58 L 97 Room Air
[2022-06-12] MEDS: ENOXAPARIN INJ 40 MG/0.4 ML SYR SQ SCH (13:59)
[2022-06-12] MEDS ORDERED: COVID19 BIVALENT Vaccine (Booster ONLY--Pfizer) 30mcg/0.3mL IM ONE (16:21)
--- NOTE | 2022-06-12 17:00 | Hospitalist Progress Note ---
Date of Service June 12, 2022 Assessment & Plan (1) Fracture, proximal femur: (2) Fall: Plan: Left hip fracture s/p mechanical fall Hip xray: Comminuted and displaced intertrochanteric fracture of the proximal left femur Pt s/p Left Hip Long Trochanteric Nailing(Left) - Macario Bueno MD, on 06/04 WBAT with walker on the left, NWB on the right 2/2 calcaneal fracture.. She will need an extended care facility. Lovenox 40mg Q24hr x 4 weeks for DVT prophylaxis. PT and OT per protocol. Dressing: Xeroform, 4x4s and Tegaderm Follow up as schedule with [facility] with Dr Bueno in 2 weeks for staple removal Cont with Tylenol and tramadol for pain (3) Delirium: Plan: Hospital-induced delirium. Cont tylenol and tramadol for pain control in case this was a trigger. Reorient and ensure any teeth in place if needed, hearing aids are in place and turned on during the day, glasses within reach for her and good day/night cycles observed including turning off the TV at night and opening the shades during the day. (4) Postoperative anemia due to acute blood loss: Plan: Patient underwent left hip surgery Hb dropped to 7.5, preop hemoglobin above 10 Follow-up H/H post 2 units pRBC was appropriate H/H is stable. (5) Right calcaneal fracture: Plan: Subacute - approximately 3 weeks old Maintain NWB Right lower extremity with cam boot in place at all times per ortho Encourage ice and elevation as needed for pain/swelling Dr. Bueno reviewed x-rays continue conservative treatment (6) Severe dementia: Plan: Per family pt is AAOx0 at baseline Due to recent R foot injury pt is not ambulating well otherwise ambulates w/o any assistance On Seroquel BID and Zoloft daily , seroquel was decreased by 50% Reorient as needed (7) DMII (diabetes mellitus, type 2): Plan: Hold oral meds, glimepiride, Tradjenta, metformin A1c 8.0 on 05/08/22 ISS and increased Lantus with poorly controlled fasting glucose (8) CKD (chronic kidney disease), stage III: Plan: Chronic, around her baseline. Cont to renally dose medications as needed and avoid nephrotoxic substances (9) DVT prophylaxis: Plan: DVT PPx: lovenox Code Status: DNR/DNI Emergency Contact: Daughter (Tatiana) [phone] Dispo-to rehab when bed available. Medically stable for discharge. Gave covid vaccination DO [facility] [address] Hospitalist Admission and Anticipated Discharge Date Admission Date: June 03, 2022 Subjective This is a 86 yo F with dementia admitted for L hip fracture s/p trochanteric nailing on 06/04 She is delirious again today and daughter is at bedside and states this is her norm Patient is clearly hallucinating States that "we all live here" Daughter requesting covid booster Gave info of primary covid series which was completed >2 months ago. Review of Systems Review of Systems: ROS is limited 2/2 delirium Physical Exam Physical Exam: CONSTITUTIONAL: WNWD, vitals as above, generally well- appearing, EYES: normal conjunctivae, no scleral icterus, ENT: external ear and nose normal, MMM NECK: trachea midline RESPIRATORY: clear to auscultation bilaterally, no crackles, rales or wheezes, normal respiratory effort CARDIOVASCULAR: regular rate and rhythm, S1 and 2 heard without murmurs, gallops or rubs, no JVD, no peripheral edema CHEST: inspection of chest was normal GASTROINTESTINAL: soft, nontender, ND, no guarding MUSCULOSKELETAL: strength 5/5 throughout, head is normocephalic and atraumatic, CAM boot in place on her right foot SKIN: warm and dry, incision on left hip covered with c/d/i dressing. NEUROLOGIC: CN 2-12 grossly intact, no sensory deficit, normal cognition, normal speech, no tremor PSYCHIATRIC: alert and cooperative but cannot answer questions appropriately, +delirium Results & Data Results & Data ([facility]) Vital Signs (Past 12 Hours) Vital Signs Temp Pulse Pulse Resp BP Pulse Ox O2 Del Method 06/12/22 14:36 36.7 C 77 16 119/67 98 Room Air 06/12/22 07:40 Room Air 06/12/22 08:09 36.7 C 79 16 98/58 L 97 Room Air Laboratory Results Short CBC 06/12/22 Range/Units 05:56 WBC 6.18 (4.8-10.8) K/ul Hgb 10.9 L (12.0-16.0) g/dl Hct 32.5 L (34.1-44.9) % Plt Count 250 (130-400) K/uL BMP 06/12/22 05:56 Sodium 141 Potassium 4.2 Chloride 106 Carbon Dioxide 28 BUN 21 Creatinine 0.74 Glucose 118 H Calcium 8.5 Medications Administered Current Inpatient Medications Acetaminophen (Acetaminophen 500 Mg Tab) 1,000 mg PO Q8 [facility] Stop: 07/08/22 16:44 Last Admin: 06/12/22 12:44 Dose: 1,000 mg Dextrose (Dextrose 50% 50 Ml Syringe) 25 - 50 ml IV UD PRN; Protocol PRN Reason: Hypoglycemia Protocol Stop: 07/03/22 16:37 Enoxaparin Sodium (Enoxaparin Inj 40 Mg/0.4 Ml Syr) 40 mg SQ Q24H [facility] Stop: 07/04/22 13:14 Last Admin: 06/12/22 13:59 Dose: 40 mg Ergocalciferol (Ergocalciferol 50,000 Units 1250 Mcg Cap) 50,000 units PO Mo@0900 [facility] Stop: 07/05/22 08:59 Last Admin: 06/12/22 08:14 Dose: 50,000 units Glucagon (Glucagon For Inj 1 Mg Vial) 1 mg SQ UD PRN; Protocol PRN Reason: Hypoglycemia Protocol Stop: 07/03/22 16:37 Glucose (Glucose 40% Gel 15 Gm Tube) 15 - 30 gm PO UD PRN; Protocol PRN Reason: Hypoglycemia Protocol Stop: 07/03/22 16:37 Glucose (Glucose 10 Tab/Tube) 4 - 8 tab PO UD PRN; Protocol PRN Reason: Hypoglycemia Treatment Stop: 07/03/22 16:37 Glycerin (Glycerin Adult 12 Supp/Box Supp) 1 supp [place] DAILY PRN PRN Reason: Constipation Stop: 07/10/22 12:17 Last Admin: 06/11/22 08:28 Dose: 1 supp Insulin Aspart (Insulin Aspart Per Unit) 0 units SC ACHS [facility] Stop: 07/04/22 05:59 Last Admin: 06/12/22 12:44 Dose: 7 units Insulin Glargine (Lantus Per Unit Charge) 14 units SQ QAM [facility] Stop: 07/10/22 08:59 Last Admin: 06/12/22 08:44 Dose: Not Given Insulin Glargine (Lantus Per Unit Charge) 20 units SQ HS [facility] Stop: 07/10/22 20:59 Last Admin: 06/11/22 22:01 Dose: 20 units Magnesium Hydroxide (Magnesium Hydroxide Susp 30 Ml Udc) 30 ml PO DAILY PRN PRN Reason: Constipation Stop: 07/03/22 16:37 Last Admin: 06/10/22 13:00 Dose: 30 ml Magnesium Oxide (Magnesium Oxide 400 Mg Tab) 400 mg PO QAM [facility] Stop: 07/05/22 08:59 Last Admin: 06/12/22 08:13 Dose: 400 mg Miscellaneous (Carbohydrates For Hypoglycemia ) 15 - 30 gm PO UD PRN PRN Reason: Hypoglycemia Protocol Stop: 07/03/22 16:37 Naloxone HCl (Naloxone Hcl 0.4 Mg/1 Ml Vial/Carp) 0.1 mg IV UD PRN PRN Reason: Opiate Overdose Stop: 07/03/22 16:37 Polyethylene Glycol (Polyethylene (Miralax) 17 Gm Pack) 17 gm PO DAILY PRN PRN Reason: constipation Stop: 07/12/22 08:59 Quetiapine Fumarate (Quetiapine Fumarate 25 Mg Tablet) 25 mg PO BID [facility] Stop: 07/11/22 08:59 Last Admin: 06/12/22 08:13 Dose: 25 mg Senna/Docusate Sodium (Docusate Sodium/Senna 50/8.6mg Tab) 2 tab PO HS [facility] Stop: 07/03/22 20:59 Last Admin: 06/11/22 22:07 Dose: Not Given Sertraline HCl (Sertraline Hcl 50 Mg Tablet) 50 mg PO DAILY [facility] Stop: 07/04/22 08:59 Last Admin: 06/12/22 08:14 Dose: 50 mg Tramadol HCl (Tramadol Hcl 50 Mg Tablet) 50 mg PO Q6H PRN PRN Reason: Breakthrough Pain Stop: 07/11/22 08:04
[2022-06-12] MEDS: DOCUSATE SODIUM/SENNA 50/8.6MG TAB PO SCH (21:09)
[2022-06-13] MEDS: ACETAMINOPHEN 500 MG TAB PO SCH (05:30)
[2022-06-13] MEDS: QUEtiapine FUMARATE 25 MG TABLET PO SCH (08:18)
[2022-06-13] MEDS: MAGNESIUM OXIDE 400 MG TAB PO SCH (08:18)
[2022-06-13] MEDS: SERTRALINE HCL 50 MG TABLET PO SCH (08:18)
[2022-06-13] MEDS: LANTUS PER UNIT CHARGE SQ SCH (08:57)
[2022-06-13] MEDS: INSULIN ASPART PER UNIT SC SCH ×2 (09:05→13:08)
--- NOTE | 2022-06-13 09:34 | Orthopedic Progress Note ---
Date of Service June 13, 2022 Assessment & Plan (1) S/p left hip fracture: Plan: POD9 - s/p left hip ORIF with long troch nail by Dr Bueno Pt is expected to be transferring to [facility] today WBAT with walker LLE; with right LE NWB may be just out of bed to chair. Participate in PT/OT following WB restrictions as above Frequently ice operative area DVT prophylaxis: Lovenox 30 BID 2-4 weeks, TEDS, foot pumps/SCDs while in hospital Pain control: Per primary Dressing: Dressings are intact and dry Keep incision covered, redress as needed. Follow up as schedule with [facility] with Dr Baeza 06/19/22 at 1pm for staple removal Present on Admission?: Yes (2) Right calcaneal fracture: Plan: Subacute - approximately 3 weeks old Maintain NWB Right lower extremity with boot in place at all times. Monitor skin Encourage ice and elevation as needed for pain/swelling. Dr. Bueno reviewed x-rays continue conservative treatment. Present on Admission?: Yes Admission and Anticipated Discharge Date Admission Date: June 03, 2022 Subjective This is a 86 yo female with dementia admitted for L hip fracture s/p trochanteric nailing on 06/04. She was seen bedside this am approx 8:50 am She is alert, answering questions in consistently student, Hallie is present as well. She denies any pain in the left hip, stated, "it is coming along." Review of Systems Review of Systems: unable to get accurate ROS due to mental status Physical Exam Physical Exam: General: pt is alert, not oriented, pleasant. Musculoskeletal: Left LE: resolving ecchymosis over the inner thigh/groin. Dressings are intact, neg for any drainage or peeling of dressing. neg for any edema over the LLE. Calf is soft, nontender, neg for erythema or warmth. Tolerated knee and hip flexion, Tolerated hip Abd, IR and ER. Able to DF and PF left ankle DP 2+LLE is NVI boot is in place on the right foot, this was removed. pressure dressing on heel, neg for erythema or drainage. this was not removed. Able to DF and PF ankle. DP 2+. sock placed back on and Right foot was placed back in boot. RLE is NVI Results & Data ([facility]) Vital Signs (Past 12 Hours) Vital Signs Temp Pulse Resp BP Pulse Ox O2 Del Method 06/13/22 08:39 36.6 C 76 22 116/69 98 Room Air
[2022-06-13 11:11] VITALS: BP 128/75; PULSE 81; TEMP 98.8; O2SAT 97
--- NOTE | 2022-06-13 12:12 | Discharge Summary ---
Date of Service June 13, 2022 Admission HPI Per Admitting Provider Pt is a 86 y/o F with hx of Severe Dementia (AAOxO at baseline), DMII, HTN (not on meds), CKD III, HLD, GERD, Recent hx of R calcaneal fracture on boot brought in from [facility] after she was found on the floor next to her bed. Information was obtained from pts and daughter. Per them pt was sent to [facility] as a restpite care after her R foot injury. Pt was awake when she was found and no sign of any urinary incontinence or foaming in her mouth. At baseline: pt is AAOx0, she walks w/o any assistance and lives with her . Daughter (Tatiana) is the POA and verified that pt is DNR/DNI. Pt is verbal but does not answer appropriately Admission Exam Per Admitting Provider General:.in mild distress,well developed, well nourished, average body habitus HEENT:.dry oral mucosa,Normocephalic and atraumatic, Normal Conjunctiva, Sclera is non-icteric Lungs:.No signs of respiratory distress, CTA, no wheezing or crackles Heart:.systolic murmur,Normal S1, S2 Abdominal:.ND, Soft, NT MSK:.Swelling near the L groin and lateral hip area, TTP of that area, R leg boot in place, no LE edema Psych:at baseline AAOx 0, does not answer questions appropriately Principal Diagnosis Left proximal femur fracture Discharge Exam Constitutional no acute distress Resting in bed Respiratory normal respiratory effort, lungs clear to auscultation Cardiovascular Rate/Rhythm: regular rate and regular rhythm Heart Sounds: + murmur (Grade 3/6, systolic) Vessels: normal peripheral pulses Extremities: no edema Gastrointestinal (Abdomen) Percussion/Palpation: abdomen soft; abdomen nontender Musculoskeletal S/p left hip surgery, dressing CDI, mild ecchymosis and edema noted RLE in cam boot Skin no rashes, warm and dry Neurologic no focal motor deficits Psychiatric Orientation: alert, oriented to person and cooperative; + not oriented to place and + not oriented to time Discharge Data Allergies Allergy/AdvReac Type Severity Reaction Status Date / Time atorvastatin Allergy Severe muscle Verified 08/15/15 21:01 weakness Penicillins Allergy Intermediate Hives Verified 08/15/15 20:36 Vaccinations COVID-19 Pfizer Bivalent booster on 06/12 Consultations 06/03/22 16:38 Consult Anesthesiology Routine Consult Orthopedic Surgery Routine Procedures Performed Operation Date: 06/04/22 10:00 Actual Procedures p Left Hip Long Trochanteric Nailing(Left) - Macario Bueno MD Ordered Studies Impressions Cervical Spine CT 06/03/22 13:[address] DOSE: HISTORY: fall eval for fx TECHNIQUE: Multiaxial CT images of the cervical spine were performed and reformatted in the sagittal and coronal plane without the use of contrast. A dose lowering technique was utilized adhering to the principles of ALARA. COMPARISON: None. FINDINGS: No fractures. No subluxation. Prevertebral soft tissues and the C1-C2 interval are intact. No pneumothorax. IMPRESSION: No fractures within the cervical spine. ACT 112: Negative or not required by law. Electronically signed by: Taqueria Hewitt M.D. 06/03/2022 2:[address] 06/03/22 13:[address] DOSE: 1426.88 mGy.cm HISTORY: fall eval fr bleed TECHNIQUE: Multiaxial CT images of the head were performed without the use of intravenous contrast. Automated exposure control was utilized for this study. A dose lowering technique was utilized adhering to the principles of ALARA. Comparison: Brain MRI 08/16/2015. Findings: The paranasal sinuses and mastoid air cells are clear. Partial opacification of the right posterior ethmoid air cells. The remaining paranasal sinuses and mastoid air cells are clear. There is mild motion artifact. Atrophy and microvascular ischemic changes are noted. 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 Ventricular prominence favors central volume loss given the patient's age. Bilateral basal ganglia calcifications are noted. Impression: No acute intracranial abnormality. Atrophy and microvascular ischemic changes. ACT 112: Negative or not required by law. Electronically signed by: Taqueria Hewitt M.D. 06/03/2022 2:15 PM Chest X-Ray 06/03/22 13:08 XR chest 1V portable HISTORY: Hip fracture. Preop. COMPARISON: Chest 08/15/2015. FINDINGS: No pneumothorax. No pleural effusions. There is chronic interstitial thickening, unchanged. No new focal lung consolidations. No evidence for pulmonary edema. The cardiac silhouette is normal in size. There are calcifications within the aortic knob. Prior cholecystectomy. IMPRESSION: Stable chronic interstitial thickening. No acute process within the chest. ACT 112: Negative or not required by law. Electronically signed by: Taqueria Hewitt M.D. 06/03/2022 2:43 PM Hip/Pelvis X-Ray 06/03/22 13:12 XR hip LT 2V w pelvis CLINICAL HISTORY: Fall. Left hip pain. COMPARISON STUDY: None. FINDINGS: There is a comminuted and displaced intertrochanteric fracture of the proximal left femur. No dislocation. The lesser trochanter fragment demonstrates 12 mm of medial displacement. The visualized pelvic bones and right hip are intact. IMPRESSION: Comminuted and displaced intertrochanteric fracture of the proximal left femur. ACT 112: Negative or not required by law. Electronically signed by: Taqueria Hewitt M.D. 06/03/2022 2:42 PM Hip X-Ray 06/04/22 00:00 FL hip LT 2-3V CLINICAL HISTORY: LEFT HIP TROCH NAIL TECHNIQUE: 5 views were obtained with the C-arm in the OR with the above p rocedure. Total fluoroscopy time was 2 minutes 2 seconds. Total skin dose was 24.23 mGy. Comparison: None available at the time of this dictation. FINDINGS/IMPRESSION: Intraoperative images were obtained of trochanteric nail placement Please correlate with intraoperative fluoroscopy and operative report. ACT 112: Negative or not required by law. Electronically signed by: Donis Ybarra M.D. 06/04/2022 12:37 PM Foot X-Ray 06/06/22 09:24 XR foot RT min 3V routine CLINICAL HISTORY: previous injury TECHNIQUE: 3 views of the right foot were obtained. Comparison: None available at the time of this dictation. FINDINGS: A linear density is seen in the right foot measuring approximately 14 mm in length, possibly in the plantar soft tissues. No acute fracture is seen. The joint spaces are well preserved. No soft tissue abnormality is seen. IMPRESSION: No acute fracture seen. Linear radiodensity, possibly in the plantar soft tissues at the level of the fourth digit, may represent a foreign body. Correlation with physical exam is recommended. ACT 112: Negative or not required by law. Electronically signed by: Donis Ybarra M.D. 06/06/2022 10:50 AM Ankle X-Ray 06/06/22 11:02 XR ankle RT min 3V routine CLINICAL HISTORY: prior injury TECHNIQUE: 3 views of the right ankle were obtained. Comparison: None available at the time of this dictation. FINDINGS: No acute fractures are present. Degenerative changes are seen. The ankle mortise is intact. Vascular calcifications are seen. IMPRESSION: No evidence of acute osseous injury. ACT 112: Negative or not required by law. Electronically signed by: Donis Ybarra M.D. 06/06/2022 2:43 PM Calcaneus X-Ray 06/06/22 11:02 XR calcaneus RT min 2V HISTORY: 86 years-old Female prior injury acute injury of the right foot COMPARISON: Right foot radiographs of same day TECHNIQUE: 2 views of the right calcaneus FINDINGS: Degenerative spurring of the calcaneus. 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 Demineralized appearance of the bones. Mild diffuse soft tissue prominence. There is an acute comminuted fracture involving the calcaneal body which appears to extend into the anterior calcaneal process. Fracture fragments are displaced medially up to 5 mm. IMPRESSION: Acute comminuted slightly displaced calcaneal fracture with adjacent soft tissue swelling. ACT 112: Negative or not required by law. The above report was generated using voice recognition software. It may contain grammatical, syntax or spelling errors. Electronically signed by: Du Abad M.D. 06/06/2022 11:54 AM Hospital Course (1) Fracture, proximal femur: (2) Fall: Patient presented on 06/03 after a mechanical fall. Left Hip xray showed Comminuted and displaced intertrochanteric fracture of the proximal left femur s/p Left Hip Long Trochanteric Nailing(Left) - Macario Bueno MD, on 06/04 WBAT with walker on the left, NWB on the right 2/2 calcaneal fracture Lovenox 40mg Q24hr x 4 weeks for DVT prophylaxis Pain well controlled with scheduled Tylenol (3) Delirium: Hospital-induced delirium, resolved Narcotics avoided, home Seroquel dose reduced Delirium precautions (4) Postoperative anemia due to acute blood loss: Received 2 unit PRBC on 06/10 Hgb 7.5 H&H responded appropriately, Hgb 10.9 on 06/12 -- recommend checking CBC in 1 we ek (5) Right calcaneal fracture: Subacute - approximately 3 weeks old Maintain NWB Right lower extremity with cam boot in place at all times per ortho (6) Vitamin D deficiency: Found to have vitamin D deficiency and started on weekly ergocalciferol 50,000 units Received 2 doses while hospitalized, recommend continuing for additional 6 weeks (7) Severe dementia: Per family pt is AAOx0 at baseline On Seroquel BID and Zoloft daily , seroquel was decreased by 50% to aid with hospital induced delirium (8) DMII (diabetes mellitus, type 2): Received Lantus and NovoLog per protocol while hospitalized -- resume home glimepiride, Tradjenta, metformin at discharge A1c 8.0 on 05/08/22 (9) CKD (chronic kidney disease), stage III: Renal functions remained stable during hospitalization Plan 86 yo F with dementia and frequent delirium presented on 06/03 after a mechanical fall at home. She fractured her left femur and notably had already sustained a right calcaneal fracture. She was recently started on Seroquel 50mg PO BID, which was reduced during the hospital stay 2/2 drowsiness. She was admitted to medicine and orthopedics was consulted. She underwent a left hip trochanteric nailing on the left on 06/[address] Macario Bueno. She was able to WBAT on the left but not on the right. Lovenox was started for DVT prophylaxis and pain was managed with scheduled Tylenol and PRN tramadol. Her post-operative course was complicated by 3-4 days of delirium which was normal for her per her daughters. She did have post-operative anemia requiring two units of pRBCs on 06/06 with appropriate response in H/H, staying stable the remainder of the admission. At time of discharge she was tolerating PO, and hemodynamically stable. She was still experiencing delirium on exam which otherwise was remarkable for a small clean, dry bandage over her left hip and her right lower leg in a CAM boot. She was discharged to SNF in stable condition for additional recovery. Total Time Total Time Spent Total Time Spent (In Minutes): 40 Discharge Plan Discharge Items Patient Disposition: Transfer Shelter Fac Reason For Visit: L HIP FRACTURE AFTER A FALL Discharge Diagnosis: Left proximal femur fracture Activity: As commented below Non-emergency contact: Primary Care Provider and Surgeon Call non-emergency contact if: you have any medication questions, your pain is not controlled, your temperature is above 101, your wound has increased redness, your wound has increased drainage and your wound pain has increased Follow-up/Referrals: Benny Chris [Primary Care Provider] - Macario Bueno MD [Surgeon] - 06/19/22 1:00 pm Diet: Carb Consistent or DM2 Addtl Attending Provider Instructions: Patient admitted on 06/03 after a fall and found to have left proximal femur fracture. Underwent left trochanteric nailing on 06/[address] Beuno. Please see orthopedic discharge directions as below. Patient will need to be on Lovenox 40 mg SQ q24h until 07/02 -do not stop until instructed by Dr. Bueno. Pain has been well controlled with scheduled Tylenol. Seroquel was reduced to 25 mg twice daily during hospitalization to help with hospital associated delirium. Patient was found to have vitamin D deficiency and was started on replacement. Patient received 2 doses of weekly ergocalciferol 50,000 units. Recommend continuing for an additional 6 weeks. Patient required PRBC transfusion during admission, recommend checking CBC in 1 week. On admission, patient had a subacute right calcaneal fracture. Maintain nonweightbearing status to right lower extremity with cam boot in place at all times per ortho. Jazzy Cook Chef Provider Instructions: DIET: * Resume previous diet. MEDICATIONS: * Pain medication as prescribed. * Lovenox 40mg SQ Q24 hours x 2-4 weeks after surgery. Do not stop Lovenox until instructed by Dr. Bueno. * If concerns develop, call your physician's office at . SPECIAL CARE INSTRUCTIONS: * Ice to right hip as needed for pain/swelling. * Elevate right lower extremity above your heart to relieve pain/swelling. * Allowed for full range of motion right hip as tolerated. No hip precautions are necessary. * Use walker to assist with ambulation at all times. * You may weight bear as tolerated right lower extremity. * Starting on post op day 4 you may shower, do not scrub or soak incision, pat incision dry. Redress with light dressing on right hip as needed. * Keep dressing clean, dry, intact. Keep it clean and dry. * Richard stockings bilateral lower extremities, on during the day, off at night. * Your surgical extremity may be discolored due to prepping agents used on the skin. A bluish-green tint is a normal variant and should not cause alarm. Call your doctor at [phone] if: * Temperature above 101 degrees * Pain not relieved by pain medicine ordered * There is increased drainage or redness from any incision * You have any unanswered questions, problems or concerns. FOLLOW UP VISIT: * If not already scheduled, please call the office at to schedule a follow-up appointment. Pending Studies at Discharge: No Stand-Alone Forms: My [facility] Skilled Items Patient informed of condition?: Yes DNR: Yes Discharge Level of Care: Skilled Communicable Disease: No Discharge Prognosis: Stable Lines: None Urinary Catheter: No Medications and DC Order Prescriptions: New ergocalciferol (vitamin D2) 1,250 mcg (50,000 unit) Capsule 50,000 unit PO Mo@0900 Qty: 6 0RF acetaminophen [Tylenol Extra Strength] 500 mg Tablet 1,000 mg PO Q8 Qty: 1 0RF enoxaparin [Lovenox] 40 mg/0.4 mL Syringe 40 mg subcut Q24H 19 Days Qty: 7.6 0RF quetiapine 25 mg Tablet 25 mg PO BID Qty: 1 0RF Continued metformin 500 mg tablet 500 mg PO BID glimepiride 2 mg tablet 4 mg PO DAILY sertraline 50 mg tablet 50 mg PO DAILY Tradjenta 5 mg tablet 5 mg PO DAILY Discontinued quetiapine 50 mg tablet 50 mg PO BID Discharge Orders: Discharge Order (Routine); Ordered 06/13/22 Ordered By: Emily Goldberg Admission Data Admit Date/Time: 06/03/22 15:44 Attending Provider: Emily Goldberg Admit Provider: Deborah Moreland Primary Care Provider: Benny Chris Other Providers: Deborah Moreland ; Cortez Valentino ; Macario Bueno ; Sony Abdullahi ; Marielle Portillo Supervising Physician Co-Signing Physician Notes I have seen and examined the patient and discussed with NATALIA Gregg. I agree with the assessment and plan. see my attending hospital course above. Emily Goldberg DO [facility]
== END 2022-06-13 13:13 | DRG 481 ==
LOC: ED 13:00 → SUATTDRO 15:44 → 3E 15:44
DX: K21.9 Gastro-esophageal reflux disease without esophagitis; S92.001D Unspecified fracture of right calcaneus, subsequent encounter for fracture with routine healing; X58.XXXD Exposure to other specified factors, subsequent encounter; S72.142A Displaced intertrochanteric fracture of left femur, initial encounter for closed fracture; E11.22 Type 2 diabetes mellitus with diabetic chronic kidney disease; Z66 Do not resuscitate; E83.39 Other disorders of phosphorus metabolism; Z79.84 Long term (current) use of oral hypoglycemic drugs; N18.30 Chronic kidney disease, stage 3 unspecified; E55.9 Vitamin D deficiency, unspecified; E11.65 Type 2 diabetes mellitus with hyperglycemia; Z88.8 Allergy status to other drugs, medicaments and biological substances; Z79.899 Other long term (current) drug therapy; E78.5 Hyperlipidemia, unspecified; Y92.122 Bedroom in nursing home as the place of occurrence of the external cause; D62 Acute posthemorrhagic anemia; I12.9 Hypertensive chronic kidney disease with stage 1 through stage 4 chronic kidney disease, or unspecified chronic kidney disease; Z20.822 Contact with and (suspected) exposure to COVID-19; Z88.0 Allergy status to penicillin; F03.90 Unspecified dementia, unspecified severity, without behavioral disturbance, psychotic disturbance, mood disturbance, and anxiety; R41.0 Disorientation, unspecified; Z23 Encounter for immunization; W06.XXXA Fall from bed, initial encounter